=== PATIENT | male | born 1940 | race Caucasian/White ===

== ENCOUNTER 2017-06-02 14:29 | Inpatient (IN) | payer MEDICARE ==
[~2017-06-02 14:29] MED LIST: Iopamidol 370 76% 100 ML VIAL ONE; Iopamidol 370 76% 50 ML VIAL FS ONE
[2017-06-02 14:56] LABS: #Lymphocytes 1.3 thou/uL (1.20-3.40); #Monocytes 1.2 thou/uL (0.11-0.59); #Neutrophils 11.3 thou/uL (1.40-6.50); %Basophils 0.1 % (0.0-1.0); %Eosinophils 0.2 % (0.0-10.0); %Lymphocytes 9.3 % (21.0-51.0); %Monocytes 8.7 % (0.0-10.0); %Neutrophils 81.7 % (42.0-75.0); Hemoglobin 15.7 g/dL (14.0-18.0); Mean Corpuscular HGB CONC 33.1 g/dL (32.0-36.0); Mean Corpuscular Hemoglobin 30.6 pg (27.0-31.0); Mean Corpuscular Volume 92.4 fl (80.0-94.0); Platelet Count 328 thou/uL (130-400); RBC Distribution Width 11.7 % (11.5-14.5); Red Blood Cell (RBC) Count 5.14 mill/uL (4.70-6.10); White Blood Cell (WBC) Count 13.8 thou/uL (4.8-10.8)
[2017-06-02 15:02] LABS: INR-International Normal Ratio 1.1; Prothrombin Time 14.7 SEC (12.0-14.7)
[2017-06-02 15:03] LABS: PTT 110.1 SEC (22.9-36.1)
[2017-06-02 15:08] LABS: ALT (SGPT) 27 U/L (8-55); AST (SGOT) 15 U/L (5-34); Albumin 3.7 g/dL (3.4-4.8); Alkaline Phosphatase 68 U/L (40-150); Anion Gap 12 mmol/L (10-20); BUN (Urea Nitrogen) 17 mg/dL (8.4-25.7); Bilirubin, Total 1.1 mg/dL (0.2-1.2); Calc. Creatinine Clearance 0 mL/min (70-130); Carbon Dioxide 25 mmol/L (23-31); Chloride 99 mmol/L (98-107); Estimated GFR-MDRD Greater than 90; Globulin 2.6 g/dL (2.4-3.5); Glucose 144 mg/dL (83-110); Lipase 125 U/L (8-78); Protein, Total 6.3 g/dL (5.8-8.1); Sodium 133 mmol/L (136-145)
[2017-06-02 15:11] LABS: CKMB 2.9 ng/mL (0-6.6); Troponin I 0.225 ng/mL (< 0.028)
--- NOTE | 2017-06-02 16:15 | HP ---
INDICATION FOR ADMISSION: A 76-year-old gentleman with what appears to be acute inferior myocardial infarction. HISTORY OF PRESENT ILLNESS: This is a very pleasant 76-year-old gentleman, who had been out cutting his grass today. He came inside the house and started noticing some chest pain around noon. He took some H2 stephanie and still continued to have some discomfort. He presented to the emergency room where he was given nitroglycerin, heparin, and aspirin. He has been on prednisone 20 mg a day for a recent cough. His pain then resolved. His EKGs have some slight improvement. He did have some nonspecific ST-segment elevation in the inferior leads as well as also in V4 through V5 with decreased R-wave in V1 through V3 and what appears to be a Q-wave in 3 and aVF. At this time, he is comfortable, but due to his EKG changes and sudden onset of his discomfort, we have opted to proceed with cardiac catheterization. He did have a cardiac catheterization in , but there were no significant abnormalities noted at that time. PAST MEDICAL HISTORY: Significant for no significant surgeries. He has had some history of hypertension. SOCIAL HISTORY: He is a . He has no children. He has no tobacco abuse. He has no alcohol use except for rarely. He is a retired vehicle service agent. FAMILY HISTORY: Noncontributory. ALLERGIES: None. MEDICATIONS: He was taking prednisone 20 mg a day. REVIEW OF SYSTEMS: Twelve-point review of systems unremarkable except what was noted in the history of present illness. PHYSICAL EXAMINATION: GENERAL: Well-developed, well-nourished gentleman. VITAL SIGNS: Blood pressure 147/66, heart rate 71 and regular, respiratory rate is 18. HEENT EXAM: Shows head to be normocephalic, atraumatic. Carotid pulses are present. There were no bruits. CHEST: Clear to auscultation without rales, rhonchi, or wheezing. CARDIOVASCULAR EXAM: Reveals a regular rate and rhythm at this time. There were no significant murmurs, heaves, thrills, bruits, or rubs. ABDOMINAL EXAM: Soft and nontender. Positive bowel sounds. No organomegaly or masses noted. Femoral pulses are present. EXTREMITIES: Showed no clubbing, cyanosis, edema. Pedal pulses are present. NEUROLOGIC: The patient appears to be fully intact. Normal strength and tone. SKIN: Warm and dry at this time. IMAGING: EKG as noted above. LABORATORY DATA: Shows a creatinine of less than 1. Otherwise, we have no recent laboratory data. These are still pending. IMPRESSION: Acute inferior myocardial infarction, ST-segment elevation. The patient will move urgently to the cardiac catheterization lab to rule out evidence of severe underlying coronary artery disease. I have explained the procedure and the risks to include bleeding, infection, possibly a myocardial infarction, cerebrovascular accident, renal insufficiency, allergic contrast reaction, even the possibility of . He understands and agrees to proceed. We will plan for emergent cardiac catheterization. VILMA
[2017-06-02] MEDS ORDERED: Nitroglycerin 0.4 MG TAB (25 Tab Bottle) SL PRN (16:17)
[2017-06-02] MEDS ORDERED: Zolpidem Tartrate 5 MG TAB PO PRN (16:17)
[2017-06-02] MEDS ORDERED: Acetaminophen/Codeine 30-300mg Tablet PO PRN ×2 (16:17)
[2017-06-02] MEDS ORDERED: Morphine 4 MG/ML Carpuject SLOW IVP PRN (16:17)
[2017-06-02] MEDS ORDERED: cloNIDine 0.1 MG TAB PO PRN (16:17)
[2017-06-02] MEDS ORDERED: Milk Of Magnesia 30 ML UDCUP PO PRN (16:17)
[2017-06-02] MEDS ORDERED: Mag-Al 1200 mg/1200 mg/30 ML UDCUP PO PRN (16:17)
[2017-06-02] MEDS ORDERED: traMADol HCl 50 MG TAB PO PRN (16:17)
[2017-06-02] MEDS ORDERED: Heparin 10,000 UNITS/ 10 ML VIAL SLOW IVP SCH (16:30)
[2017-06-02] MEDS ORDERED: Heparin 25,000 units/D5W 500 ML IV SCH (16:30)
[2017-06-02] MEDS ORDERED: Temazepam 15 MG CAP PO PRN (16:32)
[2017-06-02] MEDS ORDERED: Communication Order-Pharmacy FS SCH (16:32)
[2017-06-02] MEDS ORDERED: Heparin 25,000 units/D5W 500 ML ONE (16:34)
[2017-06-02 16:53] LABS: Hemoglobin A1c 5.6 % (4.0-6.0)
--- NOTE | 2017-06-02 17:34 | RAD ---
CHEST ONE VIEW: HISTORY: Pre open heart surgery. COMPARISON: None. FINDINGS: The lungs are clear without pneumothorax or effusion. The cardiac silhouette and mediastinal contour are within normal limits. Mild lung hypoinflation. IMPRESSION: No acute intrathoracic abnormality. POS: [facility]
[2017-06-02 20:14] LABS: CKMB 32.2 ng/mL (0-6.6); Troponin I 3.688 ng/mL (< 0.028)
[2017-06-02] MEDS ORDERED: Atorvastatin Calcium 40 MG TAB PO SCH (21:00)
[2017-06-02] MEDS ORDERED: Atorvastatin Calcium 20 MG TAB PO SCH (21:00)
[2017-06-02] MEDS: Carvedilol 3.125 MG TAB PO SCH (21:28)
[2017-06-02] MEDS: Sodium Chloride 0.9% 1,000 ML IV SCH (21:29)
[2017-06-02 22:28] LABS: CKMB 34.8 ng/mL (0-6.6); Troponin I 6.447 ng/mL (< 0.028)
--- NOTE | 2017-06-02 22:33 | ULT ---
BILATERAL CAROTID DUPLEX ULTRASOUND INCLUDING COLOR AND SPECTRAL DOPPLER IMAGING: HISTORY: A 76-year-old male with a history of AST and chest pain. FINDINGS: There is visual plaque, particularly in the left ICA and distal calcification. PSV RIGHT ICA: 67 cm per second EDV: 17 cm per second ICA/CCA RATIO: 0.8 PSV LEFT ICA: 71 cm per second EDV: 20 cm per second ICA/CCA RATIO: 0.8 Vertebral flow is antegrade. IMPRESSION: Visual plaque in the proximal left internal carotid artery and distal common carotid artery, evidence for carotid artery vascular disease. No hemodynamically significant stenosis. The findings were discussed with Dr. Jesus at 10:12 p.m. CODE CR POS: [facility]
[2017-06-03] MEDS: Sodium Chloride 0.9% 1,000 ML IV SCH ×2 (02:33→16:19)
[2017-06-03 02:53] LABS: #Basophils 0.1 thou/uL (0.0-0.2); #Lymphocytes 1.5 thou/uL (1.20-3.40); #Monocytes 0.9 thou/uL (0.11-0.59); #Neutrophils 8.3 thou/uL (1.40-6.50); %Basophils 0.6 % (0.0-1.0); %Eosinophils 0.4 % (0.0-10.0); %Lymphocytes 14.1 % (21.0-51.0); %Monocytes 8.1 % (0.0-10.0); %Neutrophils 76.8 % (42.0-75.0); Hemoglobin 14.9 g/dL (14.0-18.0); Mean Corpuscular Hemoglobin 32.2 pg (27.0-31.0); Mean Corpuscular Volume 92.1 fl (80.0-94.0); Mean Platelet Volume 7.1 fL (7.4-10.4); Platelet Count 303 thou/uL (130-400); RBC Distribution Width 11.7 % (11.5-14.5); Red Blood Cell (RBC) Count 4.61 mill/uL (4.70-6.10); White Blood Cell (WBC) Count 10.8 thou/uL (4.8-10.8)
[2017-06-03 03:17] LABS: ALT (SGPT) 23 U/L (8-55); AST (SGOT) 36 U/L (5-34); Albumin 3.3 g/dL (3.4-4.8); Alkaline Phosphatase 57 U/L (40-150); Anion Gap 11 mmol/L (10-20); BUN (Urea Nitrogen) 9 mg/dL (8.4-25.7); Calc. Creatinine Clearance 107 mL/min (70-130); Calcium 8.7 mg/dL (7.8-10.44); Carbon Dioxide 26 mmol/L (23-31); Chloride 104 mmol/L (98-107); Estimated GFR-MDRD Greater than 90; Globulin 2.2 g/dL (2.4-3.5); Glucose 122 mg/dL (83-110); Potassium 3.1 mmol/L (3.5-5.1); Protein, Total 5.5 g/dL (5.8-8.1); Sodium 138 mmol/L (136-145)
--- NOTE | 2017-06-03 08:42 | HP ---
PRIMARY CARE PHYSICIAN: Parveen Lockwood MD ADMITTING PHYSICIAN: Samantha Nails MD REASON FOR CONSULTATION: Medical management. HISTORY OF PRESENT ILLNESS: This is a 76-year-old white male with a past medical history of hyperten tiffany and diet controlled diabetes mellitus type 2, who presents with chest pain starting at noon toda y, crushing across the front of his chest and continuous pain. He went in and saw his primary care d manuela and a couple of hours later, sent him to the emergency room. There he was found to have an ST elevation acute myocardial infarction. He was quickly transferred and brought directly to the cath l ab, Dr. Nails did a cardiac catheterization on him and found 5 vessels significant coronary artery dis ease that will require coronary artery bypass grafting. The patient's pain resolved in the ambulance on the way over to [place]. He had not had any pain since. He had no other associated symptoms. PAST MEDICAL HISTORY: 1. Hypertension. 2. Diabetes mellitus type 2, diet controlled. PAST SURGICAL HISTORY: Cardiac catheterization in the . PSYCHIATRIC HISTORY: None. SOCIAL HISTORY: Rare alcohol. No illicit drug use. No history of tobacco use. FAMILY HISTORY: No significant family history of coronary artery disease or heart disease. ALLERGIES: No known drug allergies. CURRENT MEDICATIONS: 1. Diltiazem 420 mg daily. 2. Losartan/hydrochlorothiazide 100/25 mg daily. 3. Metoprolol extended release 25 mg daily. 4. Omeprazole 20 mg daily. REVIEW OF SYSTEMS: Constitutional: No fevers, no chills. Eyes: No double vision or blurred vision . ENT: No congestion, drainage, or sore throat. Cardiovascular: See HPI. No palpitations or raci ng heart. Pulmonary: Patient has had chest congestion and cough for the last 2 weeks, it is improvi ng now. No shortness of breath or wheezing. Gastrointestinal: No abdominal pain or nausea or vomit ing, no diarrhea or constipation. Genitourinary: No dysuria or hematuria. Musculoskeletal: No mus obdulia aches or joint pains. Skin: No rashes or lesions noted. Neurologic: No numbness, tingling, or focal weakness. PHYSICAL EXAMINATION: VITAL SIGNS: Blood pressure 139/65, pulse 67, O2 sat 97% on room air, temperature 97.9. GENERAL: This is a well-developed, well-nourished, white male in no apparent distress. EYES: Pupils equal, round, and react to light. ENT: Oropharynx clear without lesions, erythema, or exudate. NECK: Supple. No lymphadenopathy, no thyroid nodules or enlargement. CARDIOVASCULAR: Heart regular rate and rhythm with a 2/6 systolic ejection murmur heard loudest at t he left sternal border. RESPIRATORY: Clear to auscultation bilaterally. No wheezes, crackles, or rhonchi. ABDOMEN: Soft, nontender to palpation, normoactive bowel sounds. No hepatosplenomegaly or masses. EXTREMITIES: No clubbing, cyanosis, or edema. SKIN: No rashes or other lesions noted. NEUROLOGIC: Deep tendon reflexes 2+ in all extremities. Strength 5/5 in all extremities. No facial droop. LABORATORY AND DIAGNOSTIC DATA: CBC, white blood cell count of 13,000. The remainder is normal. Co agulation profile now with an elevated aPTT after heparin, most recent one was 51. Complete metaboli c panel was notable for sodium of 133, potassium of 3.0, glucose of 144 and lipase of 125. Hemoglobi n A1c of 5.6. Cardiac markers, first one was CK-MB of 2.9, troponin of 0.225, repeat now was 32.2 CK -MB and troponin of 3.688. Chest x-ray: I did review the chest x-ray done in the emergency room [place] with the radiologist's report. He does not have any infiltrates, no cardiomegaly, no acute proces s noted. EKG done in the emergency room did show first degree AV block, some unifocal premature vent ricular complexes and ST elevation in the anterior, inferior, and lateral leads were all affected. ASSESSMENT AND PLAN: 1. Acute ST elevation myocardial infarction. The patient is status post catheterization. He is rec eiving heparin, lisinopril, carvedilol, and has p.r.n. nitroglycerin and currently asymptomatic. Octavia suh is for Cardiovascular Surgery to see him in the morning and for him to perform a coronary artery by pass graft, currently is getting his ultrasound of carotid Dopplers and his echocardiogram has been o rdered. We will monitor closely in the ICU for any arrhythmia from his acute heart damage and give n itroglycerin as needed. 2. Hypertension. The patient is currently on a beta-stephanie and AVERY inhibitor and will give p.r.n. medicines as needed for severe hypertension. 3. Diabetes mellitus type 2, diet controlled. We will put him on a sliding scale as needed and ____ _ we will put him on a diabetic diet. 4. Gastrointestinal prophylaxis. We will put the patient on a proton pump inhibitor IV. 5. Deep venous thrombosis prophylaxis. Patient is already on heparin. CODE STATUS: I did discuss with the patient, he is a FULL CODE. Should he be incapacitated. He sta mau that his [id number] would be his medical decision maker, Ms. Toma Brown.
[2017-06-03] MEDS: Pantoprazole 40 MG VIAL IVP SCH (08:57)
[2017-06-03] MEDS: Lisinopril 2.5 MG TAB PO SCH (08:58)
[2017-06-03] MEDS: Carvedilol 3.125 MG TAB PO SCH (08:59)
[2017-06-03] MEDS ORDERED: Heparin 10,000 UNITS/1 ML VIAL 30,000 UNITS in Sodium Chloride 0.9% 1,000 ML FS SCH (09:00)
[2017-06-03] MEDS ORDERED: Prevnar 13-Val Conj/PF 0.5 ML SYRINGE IM ONE (09:00)
[2017-06-03] MEDS ORDERED: diphenhydrAMINE 50 MG/ML VIAL IVP SCH (09:15)
--- NOTE | 2017-06-03 10:11 | CON ---
DATE OF CONSULTATION: 06/02/2017 REQUESTING PHYSICIAN: Samantha Nails M.D. CHIEF COMPLAINT: Chest pain. HISTORY OF PRESENT ILLNESS: The patient is a 76-year-old man with hypertension and diet controlled d oebd, while mowing the yard today began having substernal chest pain that persisted, he decided to come to the hospital, but the pain had resolved by the time he arrived here. His initial EKG showed some subtle ST elevation inferolaterally and he was taken emergently to the [facility] where he was fo und to have severe diffuse disease in the left dominant system. PAST MEDICAL HISTORY: Significant for hypertension and "prediabetes." He describes having formerly been on metformin, which gave him diarrhea. His hemoglobin A1c at that time he says was 6.9. He mod ified his diet, lost over 20 pounds and his hemoglobin A1c by report is now on the 5s, off medication s. CURRENT MEDICATIONS: Diltiazem ER 420 mg a day, losartan 100/hydrochlorothiazide 25 one a day, Topro l-XL 25 a day, Prilosec 20 mg a day, Flomax 1 in the evening, Proscar 5 mg in the evening, potassium chloride 10 mEq in the evening, simvastatin 20 mg in the evening, Coenzyme Q10 100 mg in the morning, Krill oil 500 mg in the evening, Zyrtec 10 mg evening, and cinnamon 500 mg b.i.d. ALLERGIES: He denies any medical allergies. SOCIAL HISTORY: He has never smoked. FAMILY HISTORY: He denies any known history of premature coronary or cerebrovascular disease in the family. REVIEW OF SYSTEMS: The patient has never had any previous such episodes of chest pain. No shortness of breath. No eyes, speech, facial or extremity symptoms to suggest TIAs. He has the intentional w eight loss as described above. PHYSICAL EXAMINATION: GENERAL: He is a healthy-appearing man, who appears younger than his stated age, who is in no distre ss. VITAL SIGNS: Stated height is 6 feet tall and stated weight 183 pounds. Sinus rhythm at 75, blood p ressure 161/75. HEENT: He perhaps has some faint xanthelasma. NECK: He has no JVD. He has bilateral carotid bruits. LUNGS: His chest is clear to auscultation. CARDIOVASCULAR: He has a regular rate and rhythm with a 2/6 systolic ejection murmur heard throughou t the upper sternal border. ABDOMEN: Soft and nontender without organomegaly, masses or bruits. EXTREMITIES: He has easily palpable radial, femoral, popliteal, dorsalis pedis, and posterior tibial pulses. He has no femoral bruits. He has spider type varicosities at ankles, but no bulging varico sities. He has no clubbing, cyanosis or edema. NEUROLOGIC: Grossly nonfocal. LABORATORY DATA: Shows a white count of 13.8, hemoglobin of 15.7, hematocrit 47.5, platelets 328,000 . PT is 14.7, INR 1.1, PTT 110. Sodium is 133, potassium 3.0, chloride 99, CO2 25, glucose 144, BUN 17, creatinine 0.81, bilirubin 1.1, alkaline phosphatase 68, AST 15, ALT 27, protein 6.3, albumin 3. 7. CK was 2.9, troponin 0.225. His cardiac catheterization shows a left dominant system. He has a high grade proximal lesion and a small nondominant right. He has some calcified plaque in the left m ain and proximal branch vessel. He has some mild distal narrowing of the left main and then ostial L AD lesion. He has a high first diagonal that bifurcates with essentially an occluded large anterior branch of that diagonal then gives rise to 3 small branches. Dye hangs up in the large primary branc h of that anterior branch. His LAD is occluded distally and one gets hint of a cast wrapping around the apex. The circumflex proper gives rise to a tiny ramus type OM1 and then modest size, but long O M2 just beyond that has a long proximal lesion in it and OM2 appears to fill in left to left faintly and then there is a large OM3 that has some disease in it. There are serial lesions in the distal ci rcumflex as it leads and terminal arborization into the posterior descending distribution. LVEF is a round 60% or even 70% with an area of inferior akinesis. LV pressure is 150/2 with an EDP of 18. Ao rtic pressure on pullback was 134/46 with a mean of 85. ASSESSMENT AND PLAN: Severe three-vessel coronary artery disease. The patient is currently stable a nd pain free, but has certainly very compelling anatomy, not only for long-term, but for short term, speaking towards surgical revascularization. The patient is still in the process of making up his mi nd. I am going to have things arranged to be able to proceed with his bypass surgery tomorrow assumi ng that he decided to proceed. In the meantime, I am going to check carotid ultrasounds to investiga te his carotid bruits.
--- NOTE | 2017-06-03 10:25 | PDOC.PN ---
- Subjective Encounter Start Date: 06/03/17 Encounter Start Time: 15:00 Subjective: Patient down for CABG. - Objective Resuscitation Status: Resuscitation Status FULL:Full Resuscitation MAR Reviewed: Yes Vital Signs & Weight: Vital Signs (12 hours) Temp Pulse 06/03/17 08:58 74 06/03/17 08:00 97.8 F 06/03/17 04:00 97.8 F 06/03/17 00:00 97.6 F Weight Admit Weight 186 lb 1.122 oz Weight 186 lb 1.122 oz Most Recent Monitor Data Heart Rate from ECG 67 NIBP 149/59 NIBP BP-Mean 81 Respiration from ECG 17 SpO2 96 I&O: 06/02/17 06/03/17 06/04/17 06:59 06:59 06:59 Intake Total 1250 Output Total 2842 220 Balance -1592 -220 Result Diagrams: 06/03/17 02:32 06/03/17 02:32 Dx/Plan (1) STEMI (ST elevation myocardial infarction) Status: Acute (2) CAD (coronary artery disease) Code(s): I25.10 - ATHSCL HEART DISEASE OF [place] CORONARY ARTERY W/O ANG PCTRS Status: Acute Qualifiers: Coronary Disease-Associated Artery/Lesion type: [place] artery Comment: multivessel disease, plan for CABG today (3) Hypertension Code(s): I10 - ESSENTIAL (PRIMARY) HYPERTENSION Status: Chronic (4) Diabetes mellitus type 2, diet-controlled Code(s): E11.9 - TYPE 2 DIABETES MELLITUS WITHOUT COMPLICATIONS Status: Chronic - Plan cont current plan of care, DVT proph w/heparin * . - Discharge Day Encounter end time: 15:10
[2017-06-03] MEDS ORDERED: Norepinephrine 8 MG/0.9% NS 250 ML ONE (10:29)
[2017-06-03] MEDS ORDERED: Nitroglycerin 50 MG/250 ML BOT 250 ML ONE (10:29)
[2017-06-03] MEDS ORDERED: Midazolam HCl 5 mg/5 ml Vial ONE (10:41)
[2017-06-03] MEDS ORDERED: Fentanyl 250 MCG/5 ML VIAL ONE (10:41)
[2017-06-03] MEDS ORDERED: Vecuronium 10 MG VIAL ONE ×2 (10:42→11:55)
[2017-06-03] MEDS ORDERED: Phenylephrine HCL 10 MG/ML VIAL ONE (10:42)
[2017-06-03] MEDS ORDERED: Midazolam HCl 2 mg/2 ml Vial ONE (11:06)
[2017-06-03] MEDS ORDERED: Albumin 5% 500 ML ONE (11:36)
[2017-06-03] MEDS ORDERED: DOPamine 400 MG/10 ML VIAL ONE (11:55)
[2017-06-03] MEDS ORDERED: Sodium Bicarb 50 MEQ/50 ML VIAL ONE (11:55)
[2017-06-03] MEDS ORDERED: Heparin 30,000 units/30 ml VIAL ONE (11:55)
[2017-06-03] MEDS ORDERED: Aminocaproic Acid 5 GM/20 ML VIAL ONE (11:55)
[2017-06-03] MEDS ORDERED: Lidocaine 1% PF 5 ML VIAL ONE (11:55)
[2017-06-03] MEDS ORDERED: Papaverine 60 MG/2 ML VIAL ONE (11:55)
[2017-06-03] MEDS ORDERED: Magnesium 5 GM/10 ML VIAL ONE (11:55)
[2017-06-03] MEDS ORDERED: Protamine Sulfate 250 MG/25 ML VIAL ONE (11:55)
[2017-06-03] MEDS ORDERED: Lidocaine 2% PF 100 mg/5 ml Syringe ONE (11:55)
[2017-06-03] MEDS ORDERED: PHENYLEPHRINE-NS 100 MCG/ML 10 ML SYRINGE ONE (11:55)
[2017-06-03] MEDS ORDERED: Potassium Chloride 60 MEQ/30 ML VIAL ONE (11:55)
[2017-06-03] MEDS ORDERED: Calcium Chloride 1 GM/10 ML Abboject SYRINGE ONE (11:55)
[2017-06-03] MEDS ORDERED: Cardioplegic Soln 1,000 ML BAG ONE (11:55)
[2017-06-03] MEDS ORDERED: Heparin 5,000 UNITS/ML VIAL ONE (11:55)
[2017-06-03] MEDS ORDERED: PROPOFOL 200 MG/20 ML VIAL ONE (11:55)
[2017-06-03] MEDS ORDERED: CEFAZOLIN 1 GM VIAL ONE (12:47)
[2017-06-03] MEDS ORDERED: Ondansetron HCl/PF 4 MG/2 ML Vial IVP PRN (15:52)
[2017-06-03] MEDS ORDERED: Morphine 4 MG/ML VIAL SLOW IVP PRN (15:52)
[2017-06-03] MEDS ORDERED: Promethazine HCl 25 MG/ML VIAL IM PRN (15:52)
[2017-06-03] MEDS ORDERED: Bisacodyl 5 MG TAB PO PRN (15:52)
[2017-06-03] MEDS ORDERED: Acetaminophen 325 MG TAB PO PRN (15:52)
[2017-06-03] MEDS ORDERED: Post-Op Insulin Drip Protocol IVPB ONE (15:52)
[2017-06-03] MEDS ORDERED: Nitroglycerin 50 MG/250 ML BOT 250 ML IVPB PRN (15:52)
[2017-06-03] MEDS ORDERED: Fentanyl 100 MCG/2 ML VIAL SLOW IVP PRN ×2 (15:52)
[2017-06-03] MEDS ORDERED: hydrALAZINE 20 MG/ML VIAL SLOW IVP PRN (15:52)
[2017-06-03] MEDS ORDERED: Bisacodyl 10 MG SUPP PR PRN (15:52)
[2017-06-03] MEDS ORDERED: niCARdipine HCl 25 MG in Sodium Chloride 0.9% 250 ML 240 ML IVPB PRN (15:52)
[2017-06-03] MEDS ORDERED: Mag-Al 1200 mg/1200 mg/30 ML UDCUP PO PRN (15:52)
[2017-06-03] MEDS ORDERED: Potassium Chloride 20 MEQ/100 ML PREMIX BAG IVPB PRN (15:52)
[2017-06-03] MEDS ORDERED: Hetastarch 6% 500 ML 500 ML IVPB PRN (15:52)
[2017-06-03] MEDS ORDERED: Norepinephrine 8 MG/0.9% NS 250 ML IVPB PRN (15:52)
[2017-06-03] MEDS ORDERED: Guaifenesin DM 100-10/5 ML UDCUP PO PRN (15:52)
[2017-06-03] MEDS ORDERED: Dextrose 5% in Water 1,000 ML IV PRN (16:00)
[2017-06-03] MEDS ORDERED: Dextrose 50% Abboject 50 ML SYRINGE SLOW IVP PRN (16:00)
[2017-06-03 16:23] LABS: Actual Bicarbonate (HCO3a) 22.6 mEq/L (22-26); Hemoglobin (Hb) 12.2 g/dL (14.0-18.0); O2 Tension (PaO2) 109.6 mmHg (80.0-100.0); pH, Arterial 7.39 (7.35-7.45)
[2017-06-03 16:24] LABS: Calcium, Ionized 1.1 mmol/L (1.12-1.30); Puncture Site LINE
[2017-06-03 16:37] LABS: INR-International Normal Ratio 1.4; PTT 33.4 SEC (22.9-36.1); Prothrombin Time 17.3 SEC (12.0-14.7)
--- NOTE | 2017-06-03 16:44 | RAD ---
CHEST ONE VIEW: History: Post open heart surgery. Comparison: 06-02-17 FINDINGS: Patient is intubated with enteric tube tip in good position at the level of the clavicles. Central ve nous catheter tip is present in the right atrium. Mediastinal drain and left thoracostomy drains are present. No apical pneumothorax is appreciated. Midline sternotomy wires are present. IMPRESSION: Expected post-operative findings. No complication. POS: C
[2017-06-03 16:49] LABS: Band 5 % (5-11); Hemoglobin 12.3 g/dL (14.0-18.0); Lymphocytes 6 % (21-51); MDiff Complete? YES; Mean Corpuscular HGB CONC 34.1 g/dL (32.0-36.0); Mean Corpuscular Hemoglobin 31.7 pg (27.0-31.0); Mean Corpuscular Volume 93.2 fl (80.0-94.0); Mean Platelet Volume 6.8 fL (7.4-10.4); Monocytes 3 % (0-10); Neutrophil 86 % (42-75); PLT Morphology Comment Appears Adequate; Platelet Count 217 thou/uL (130-400); RBC Distribution Width 11.8 % (11.5-14.5); Red Blood Cell (RBC) Count 3.88 mill/uL (4.70-6.10); White Blood Cell (WBC) Count 28.9 thou/uL (4.8-10.8)
[2017-06-03 16:50] LABS: Anion Gap 10 mmol/L (10-20); BUN (Urea Nitrogen) 9 mg/dL (8.4-25.7); Calc. Creatinine Clearance 121 mL/min (70-130); Calcium 7.1 mg/dL (7.8-10.44); Carbon Dioxide 21 mmol/L (23-31); Chloride 111 mmol/L (98-107); Estimated GFR-MDRD Greater than 90; Glucose 141 mg/dL (83-110); Potassium 3.3 mmol/L (3.5-5.1); Sodium 139 mmol/L (136-145)
[2017-06-03] MEDS: Insulin Regular 300 UNITS/3 ML VIAL SC PRN ×2 (16:53→23:03)
[2017-06-03] MEDS: Ketorolac Tromethamine 30 MG/ML VIAL IVP SCH (17:38)
[2017-06-03 18:23] LABS: pH, Arterial 7.32 (7.35-7.45)
[2017-06-03 18:24] LABS: Actual Bicarbonate (HCO3a) 21.4 mEq/L (22-26); Base Excess (BEa) -4.4 mEq/L (0 (+/-) 2.5); CO2 Tension 42.4 mmHg (35.0-45.0); Calcium, Ionized 1.1 mmol/L (1.12-1.30); Hematocrit-ABG 34.8 % (42.0-52.0); O2 Tension (PaO2) 80.2 mmHg (80.0-100.0)
[2017-06-03 18:25] LABS: Puncture Site LINE
--- NOTE | 2017-06-03 22:00 | OP ---
DATE OF PROCEDURE: 06/03/2017 PROCEDURES PERFORMED: Right subclavian central line placement, coronary artery bypass grafting x5 wi th left internal mammary artery to the mid LAD, sequential reverse greater saphenous vein graft from the aorta to the second obtuse marginal to the diagonal, sequential reverse greater saphenous vein gr aft from the aorta to the OM4 to the OM3. PREOPERATIVE DIAGNOSES: Coronary artery disease, status post ST-elevation myocardial infarction. POSTOPERATIVE DIAGNOSES: Coronary artery disease, status post ST-elevation myocardial infarction. SURGEON: Dr. Jesus. TOWER OPERATOR: Seth. ANESTHESIA: General endotracheal anesthesia. INDICATIONS: The patient is a 76-year-old diet-controlled diabetic with hypertension, who began havi ng chest pain while doing yard work. By the time, he presented to the emergency room, the pain had r esolved, but he still had some ST elevation inferolaterally on his EKG, and he was taken emergently t o the cardiac catheterization lab where he was found to have multivessel disease in the left dominant system including an ostial LAD lesion. He has had an uneventful post-infarction course and is now t aken to the operating room for surgical revascularization. FINDINGS: Pump time 95 minutes. Cross-clamp time 61 minutes. Good quality of mammary and saphenous vein. There was fairly large hard plaque to the left anteromedial aspect of the distal ascending ao rta prompting right common femoral artery cannulation and construction of proximal vein graft anastom oses under cross-clamped. The LAD distally was a rock hard vessel in its midportion, it was thick-wa lled but soft, it was about 2 mm in diameter. The diagonal was about 2 mm in diameter. The second o btuse marginal was 2 to 2.5 mm in intramyocardial. The OM3 was rock hard proximally into its midport ion, but distally was soft and slightly thick walled, it was about 1.5 to 2 mm in diameter. The OM4 was a fairly good quality 1.5 to 2 mm vessel. The terminal circumflex branches were all small with t he largest of those being only about 1 mm. The pericardium was closed. NARRATIVE REPORT: After informed consent was obtained, the patient was taken to the operating room a nd placed in supine position on the operating table. After induction of general anesthesia, the david ent's right upper chest was prepped and draped in sterile fashion. By the Seldinger technique, tripl e-lumen central line kit was used to place a central line in the right subclavian position. All thre e ports aspirated and flushed. The line was secured. The patient sores of groins and lower extremit ies were prepped and draped in sterile fashion. Saphenous vein was harvested endoscopically from the left lower extremity from the groin to about one and half handbreadths above the foot. It was a goo d quality vessel fairly uniform caliber. A median sternotomy was performed. The left pleural space was entered and the left JESSICA was mobilized as a pedicle from the level of the xiphoid to the level of the subclavian vein. Side branches were controlled with Hemoclips. The patient was heparinized and the mammary was ligated and divided distally. There was good flow through the mammary, which was in stilled intraluminally with papaverine solution. The mammary bed was inspected for hemostasis. JESSICA retractors were placed with an Ankeney. The pericardium was opened and marsupialized. They was palp ated and hard plaque was found distally in the ascending aorta. It was relatively localized plaque, even though it was hard. While there was room immediately adjacent to it for aortic cannulation that was bit uneasy about manipulating the aorta in that manner, so close to the plaque. There did appea r to be room for safe cross-clamping, proximal to the clamp to the plaque and still in room for at le ast 2 aortotomies. An oblique incision was made about a fingerbreadth below the right groin crease c entered over the palpable femoral pulse. The femoral artery was identified and isolated this loop wi th an umbilical tape and a 5-0 Prolene pursestring was placed in this very large vessel. A pursestri ng was placed in the right atrial appendage. An 18-Divehi wire reinforced thin-walled femoral arteri al cannula was placed through the Prolene pursestring in the femoral artery, it advanced easily. The obturator was removed and the line was clamped and secured, it was connected to the bypass circuit. Venous cannula was inserted through the right atrial appendage, the plane between the aorta and the pulmonary artery was developed and the aorta was again palpated. No additional plaque was identified . Cardiopulmonary bypass was instituted and the patient's body temperature was allowed to cool. The heart was examined and the vessel to be bypassed were identified. A longitudinal slit was made in t he pericardium anterior to the left phrenic nerves. There is the mammary pedicle could be passed. A n aortic cross-clamp was applied and cardioplegia was administered through an aortic root needle. Wh en arrest been achieved, attention was turned to the distal arborization of the dominant circumflex a nd the largest of the vessels was explored near where it emerged from the AV groove as a very thin-wa lled small vessel and has elected not to attempt grafting of it. Attention was then turned to the po sterolateral OM4, it was exposed and opened and examining the OM3 with plan to do a sequential grafti ng technique from the OM forward to it, it was readily apparent that at that same level, the OM3 was not graftable. It was a soft vessel out distally and rather than constructing the anastomosis perpen dicular to the axis. The coronary was elected to graft the OM3 end-to-side and the OM4 [id number] with the anastomoses oriented nearly parallel to the axis of the coronary. The OM3 was opened distal ly and was grafted end-to-side. A longitudinal venotomy was made in that graft and a pukw-uf-swge an astomosis constructed to the OM for the lay of the anterior branch of the diagonal was nearly paralle l to the LAD. It allowed for sequential grafting technique to graft, the diagonal in the side and th en a [id number] anastomosis was constructed from that graft to the intramyocardial OM2. The LAD wa s then opened in its mid portion, where it began to dive intramyocardially. Distally, it was a rock hard vessel, not suitable for grafting. The left JESSICA was anastomosed there end-to-side with running 7-0 Prolene, and the mammary pedicle tacked to the epicardium. Additional cardioplegia was administe red at that point and then two aortotomies were made in the ascending aorta with a scalpel and punch. The sequential OM2 diagonal graft was anastomosed end-to-side to the more proximal aortotomy and th e sequential OM4, OM3 graft was anastomosed in the more distal aortotomy with that distal anastomosis frustrated, patient was placed in Trendelenburg and cardioplegia was administered through the aortic root needle to help flush the aortic root of air. The suture line was secured and the root needle w as placed on suction with the patient in Trendelenburg. The aortic cross-clamp was removed and the v ein grafts were deaired. The bulldogs were removed from them and the proximal anastomoses were marke d with small Hemoclips. The anastomoses were examined for adequacy of hemostasis. The bulldog was r emoved from the mammary pedicle. There was no bleeding along the pedicle or any apparent surgical bl eeding at the anastomosis. A left pleural drain was brought out through separate incision and secure d with suture as well as a posterior pericardial drain. Right atrial and right ventricular temporary epicardial pacing wires were placed. The root needle was removed in its insertion site secured with Prolene pursestring with the use of AV sequential pacing. The patient was then from cardi opulmonary bypass. The venous cannula was removed and its pursestring secured with Rumel. The arter ial cannula was removed and its pursestring secured. Patient tolerated the test dose of protamine. The atrial cannulation site was secured and the remaining protamine was given. When hemostasis was a dequate, an anterior mediastinal drain was placed and the pericardium was easily closed over with run fany Vicryl. The sternum was reapproximated with #7 stainless steel wires. The fascia was closed ov er the wires. The heavy Vicryl in the subcutaneous tissue was irrigated and reapproximated and the s kin closed with Vicryl subcuticular stitch. The groin wound was again inspected, it was closed in la yers with subcutaneous and subcuticular Vicryl. The wounds were dressed and the patient taken to the Intensive Care Unit in stable condition.
[2017-06-03] MEDS: Famotidine 40 MG/4 ML VIAL SLOW IVP SCH (22:39)
[2017-06-03] MEDS: Atorvastatin Calcium 10 MG TAB PO SCH (22:41)
[2017-06-03 22:58] LABS: Hemoglobin 11.2 g/dL (14.0-18.0)
[2017-06-03 23:14] LABS: Potassium 3.9 mmol/L (3.5-5.1)
[2017-06-04] MEDS: Ketorolac Tromethamine 30 MG/ML VIAL IVP SCH ×3 (00:10→11:25)
--- NOTE | 2017-06-04 03:03 | CON ---
DATE OF CONSULTATION: 06/03/2017 HISTORY OF PRESENT ILLNESS: A 76-year-old male. He underwent coronary bypass grafting today. I was examining him after he returned from surgery. He is unable to give a history. PAST MEDICAL HISTORY: Remarkable for diabetes with an emergent catheterization after an ST elevation myocardial infarction. This admission showing significant coronary artery disease, history of hypertension, history of cardiac catheterization over 20 years ago. SOCIAL HISTORY: Non-smoker, nondrinker. Rarely, does not use drugs. ALLERGIES: He has no drug allergies. FAMILY HISTORY: Negative for vascular disease or lung disease in early age. MEDICATIONS: Prior to admission he was on Cardizem, losartan, hydrochlorothiazide, metoprolol, omeprazole. REVIEW OF SYSTEMS: Not obtainable. PHYSICAL EXAMINATION: GENERAL: Pt underwent CABG today VITAL SIGNS: An arterial line in place. Blood pressure 107/62. He was paced, respiratory rate was per mechanical ventilation. HEENT: Pupils are equal. Sclerae is anicteric. NECK: Supple. Sternum is bandaged. LUNGS: Remarkable for equal breath sounds. HEART: Regular rhythm. ABDOMEN: Soft and nontender. EXTREMITIES: No clubbing, cyanosis, or edema. He is paced postoperatively. Chest x-ray showed proper placement of tubes and lines, no infiltrates. IMPRESSION: Status post emergent coronary artery bypass grafting, clinically stable, will be weaned per protocol. Dr. Jesus feels this is appropriate. I will be happy to follow with the patient physicians caring for him. This is a 70 minute consult greater than 50% of the time spent on the unit coordinating care. VILMA
[2017-06-04] MEDS: Sodium Chloride 0.9% 1,000 ML IV SCH (04:04)
[2017-06-04 04:58] LABS: Anion Gap 7 mmol/L (10-20); BUN (Urea Nitrogen) 16 mg/dL (8.4-25.7); Calc. Creatinine Clearance 96 mL/min (70-130); Calcium 7.8 mg/dL (7.8-10.44); Carbon Dioxide 28 mmol/L (23-31); Chloride 110 mmol/L (98-107); Estimated GFR-MDRD Greater than 90; Glucose 116 mg/dL (83-110); Sodium 141 mmol/L (136-145)
[2017-06-04 05:00] LABS: #Monocytes 1.3 thou/uL (0.11-0.59); #Neutrophils 13.6 thou/uL (1.40-6.50); %Lymphocytes 6.1 % (21.0-51.0); %Monocytes 8.3 % (0.0-10.0); %Neutrophils 85.6 % (42.0-75.0); Hemoglobin 10.4 g/dL (14.0-18.0); Mean Corpuscular HGB CONC 32.8 g/dL (32.0-36.0); Mean Corpuscular Hemoglobin 31.5 pg (27.0-31.0); Mean Platelet Volume 7.2 fL (7.4-10.4); Platelet Count 254 thou/uL (130-400); RBC Distribution Width 11.8 % (11.5-14.5); Red Blood Cell (RBC) Count 3.31 mill/uL (4.70-6.10); White Blood Cell (WBC) Count 15.9 thou/uL (4.8-10.8)
[2017-06-04 06:23] VITALS: BMI 26.2
--- NOTE | 2017-06-04 08:23 | RAD ---
CHEST ONE VIEW: History: Chest pain. Dyspnea. Comparison: 06-03-17 FINDINGS: Cardiac silhouette is magnified by projection and partially obscured by bibasilar atelectasis that reyes s increased slightly since the previous study. Mediastinum is midline with post-operative changes and a right internal jugular central venous catheter. Left thoracostomy tube remains in place without re sidual pneumothorax. Endotracheal catheter is no longer visible. night monitor leads overlie the ch est. IMPRESSION: 1. Interval extubation. Slight increase in bibasilar atelectasis. 2. Other post-operative findings are stable. POS: [facility]
[2017-06-04] MEDS: Pantoprazole 40 MG VIAL IVP SCH (09:26)
[2017-06-04] MEDS: Aspirin 325 MG TAB PO SCH (09:26)
[2017-06-04] MEDS: Famotidine 40 MG/4 ML VIAL SLOW IVP SCH ×2 (09:26→20:55)
[2017-06-04] MEDS: Lisinopril 2.5 MG TAB PO SCH (09:26)
[2017-06-04] MEDS: HYDROcodone/Acetaminophen 5/325 mg Tablet PO PRN ×4 (10:44→21:57)
[2017-06-04] MEDS ORDERED: diphenhydrAMINE 25 MG CAP PO PRN (13:36)
[2017-06-04] MEDS: diphenhydrAMINE 25 MG CAP PO PRN (13:40)
--- NOTE | 2017-06-04 14:14 | PDOC.PN ---
- Subjective Encounter Start Date: 06/04/17 Encounter Start Time: 12:00 Patient is seeen today, he is Weak and tired not eating well, Loss of Appetite, Discussed about Ensure. - Objective Resuscitation Status: Resuscitation Status FULL:Full Resuscitation MAR Reviewed: Yes Vital Signs & Weight: Vital Signs (12 hours) Temp Pulse Resp Pulse Ox 06/04/17 12:00 97.5 F L 06/04/17 09:26 86 06/04/17 07:40 97.1 F L 86 15 99 06/04/17 07:00 97.1 F L 06/04/17 05:00 97.8 F Weight Admit Weight 186 lb 1.122 oz Weight 193 lb 9.054 oz Most Recent Monitor Data Heart Rate from ECG 96 NIBP 109/55 NIBP BP-Mean 65 Respiration from ECG 14 SpO2 96 I&O: 06/03/17 06/04/17 06/05/17 06:59 06:59 06:59 Intake Total 1250 1533 270 Output Total 2842 1495 340 Balance -1592 38 -70 Result Diagrams: 06/04/17 04:40 06/04/17 04:40 Additional Labs: Accuchecks 06/04/17 06/04/17 06/04/17 12:00 09:51 04:35 POC Glucose 99 147 H 114 H 06/04/17 06/03/17 06/03/17 00:38 20:48 16:15 POC Glucose 129 H 145 H 136 H 06/03/17 06/03/17 15:01 14:21 POC Glucose 148 H 147 H Radiology Reviewed by me: Yes Phys Exam - Physical Examination HEENT: PERRLA, moist MMs Neck: no nodes, no JVD Respiratory: wheezing present Cardiovascular: RRR, no significant murmur Gastrointestinal: soft, non-tender Musculoskeletal: no edema, pulses present Neurological: non-focal, normal sensation Lymphatic: no nodes Psychiatric: normal affect, A&O x 3 Dx/Plan (1) CAD (coronary artery disease) Code(s): I25.10 - ATHSCL HEART DISEASE OF [place] CORONARY ARTERY W/O ANG PCTRS Status: Acute Qualifiers: Coronary Disease-Associated Artery/Lesion type: [place] artery Comment: multivessel disease, s/pCABG With Chest tubes with underwater seal. Mansoor, Cardiology following. (2) STEMI (ST elevation myocardial infarction) Status: Acute Comment: Continue on Aspirin, BB, Statin, (3) Diabetes mellitus type 2, diet-controlled Code(s): E11.9 - TYPE 2 DIABETES MELLITUS WITHOUT COMPLICATIONS Status: Chronic Comment: Will encourage to take Ensure, has Doiet controlled DM type. (4) Hypertension Code(s): I10 - ESSENTIAL (PRIMARY) HYPERTENSION Status: Chronic Comment: Continue on Home MEds, BP at Goal. - Plan cont current plan of care, plan discussed w/ family, PT/OT, social service assistant, respiratory therapy, incentive spirometry, DVT proph w/lovenox * . - Discharge Day Encounter end time: 12:30 Review of Systems - Review of Systems Constitutional: negative: fever, chills, sweats, weakness, malaise, other Eyes: negative: Pain, Vision Change, Conjunctivae Inflammation, Eyelid Inflammation, Redness, Other ENT: negative: Ear Pain, Ear Discharge, Nose Pain, Nose Discharge, Nose Congestion, Mouth Pain, Mouth Swelling, Throat Pain, Throat Swelling, Other Respiratory: Cough, Shortness of Breath Cardiovascular: chest pain Gastrointestinal: negative: Nausea, Vomiting, Abdominal Pain, Diarrhea, Constipation, Melena, Hematochezia, Other Genitourinary: negative: Dysuria, Frequency, Incontinence, Hematuria, Retention , Other Musculoskeletal: negative: Neck Pain, Shoulder Pain, Arm Pain, Back Pain, Hand Pain, Leg Pain, Foot Pain, Other - Medications/Allergies Allergies/Adverse Reactions: Allergies Allergy/AdvReac Type Severity Reaction Status Date / Time No Known Drug Allergies Allergy Verified 06/02/17 20:03 Medications: Current Medications Acetaminophen (Tylenol) 650 mg PO Q6H PRN PRN Reason: Headache/Fever Or Mild Pain Hydrocodone Bitart/Acetaminophen ([place] 5/325) 1 tab PO Q4H PRN PRN Reason: Moderate Pain (4-6) Last Admin: 06/04/17 13:44 Dose: 1 tab Hydrocodone Bitart/Acetaminophen ([place] 5/325) 2 tab PO Q4H PRN PRN Reason: Severe Pain (7-10) Al Hydroxide/Mg Hydroxide (Maalox) 30 ml PO Q4H PRN PRN Reason: Indigestion Albuterol/Ipratropium (Duoneb) 3 ml NEB [id number] PRN PRN Reason: SHORTNESS OF BREATH Aspirin (Aspirin) 325 mg PO DAILY [facility] Last Admin: 06/04/17 09:26 Dose: 325 mg Atorvastatin Calcium (Lipitor) 10 mg PO HS [facility] Last Admin: 06/03/17 22:41 Dose: 10 mg Bisacodyl (Dulcolax) 10 mg PO Q12H PRN PRN Reason: Constipation Bisacodyl (Dulcolax) 10 mg [place] Q12H PRN PRN Reason: Constipation Dextrose/Water (Dextrose 50%) 25 gm SLOW IVP PRN PRN PRN Reason: PER HYPOGLYCEMIC PROTOCOL Diphenhydramine HCl (Benadryl) 25 mg PO Q12H PRN PRN Reason: ALLERGIES Last Admin: 06/04/17 13:41 Dose: 25 mg Famotidine (Pepcid) 20 mg SLOW IVP Q12HR [facility] Last Admin: 06/04/17 09:26 Dose: Not Given Glucagon (Glucagon) 1 mg SC PRN PRN PRN Reason: PER HYPOGLYCEMIC PROTOCOL Guaifenesin/Dextromethorphan (Robitussin Dm) 15 ml PO Q4H PRN PRN Reason: Cough Hydralazine HCl (Apresoline) 10 mg SLOW IVP Q6H PRN PRN Reason: To Maintain SBP< 140mmHG Dextrose/Water (D5w) 1,000 mls @ 0 mls/hr IV INF PRN; As Directed PRN Reason: PRN HYPOGLYCEMIC PROTOCOL Insulin Human Regular (Humulin R) 0 units SC Q4H PRN; Protocol PRN Reason: POST OP SLIDING SCALE Last Admin: 06/03/17 23:03 Dose: 3 unit Lisinopril (Zestril) 2.5 mg PO DAILY [facility] Last Admin: 06/04/17 09:26 Dose: Not Given Ondansetron HCl (Zofran) 4 mg IVP Q6H PRN PRN Reason: Nausea/Vomiting Sodium Chloride (Flush - Normal Saline) 10 ml IVF Q12HR [facility] Last Admin: 06/04/17 09:28 Dose: 10 ml Sodium Chloride (Flush - Normal Saline) 10 ml IVF PRN PRN PRN Reason: Saline Flush
--- NOTE | 2017-06-04 16:30 | PRG ---
DATE OF SERVICE: 06/04/2017 SUBJECTIVE: Mrs. Ann is doing well today. He is extubated per protocol overnight. He still has c hest tubes in. OBJECTIVE: VITAL SIGNS: His heart rates in the 90s, blood pressure 109/55, respiratory rates 14, oximetry is 96 . He is not paced. LUNGS: His lungs are clear. HEART: Regular rhythm. S1 and S2 are normal. ABDOMEN: Soft and nontender. EXTREMITIES: Without asymmetry. IMAGING: Chest radiograph is hazy at his bases as expected after extubation. I have reviewed this. LABORATORY DATA: White count is 15.9, hemoglobin 10.4, platelets 254,000. Sodium 141, potassium 4, chloride 110, bicarbonate 20, BUN 16, creatinine 0.7. Blood gas last night 7.32, CO2 42, pO2 80. IMPRESSION: Status post coronary bypass grafting, clinically stable. PLAN: Continue routine post-cardiac bypass care. There are no acute pulmonary issues at this time.
[2017-06-04] MEDS: Atorvastatin Calcium 10 MG TAB PO SCH (20:57)
[2017-06-05] MEDS: HYDROcodone/Acetaminophen 5/325 mg Tablet PO PRN ×3 (05:12→18:53)
[2017-06-05 05:22] LABS: #Monocytes 1.3 thou/uL (0.11-0.59); #Neutrophils 13.4 thou/uL (1.40-6.50); %Eosinophils 0.2 % (0.0-10.0); %Lymphocytes 6.1 % (21.0-51.0); %Monocytes 8.2 % (0.0-10.0); %Neutrophils 85.5 % (42.0-75.0); Hemoglobin 9.4 g/dL (14.0-18.0); Mean Corpuscular HGB CONC 33.9 g/dL (32.0-36.0); Mean Corpuscular Hemoglobin 31.8 pg (27.0-31.0); Mean Corpuscular Volume 93.8 fl (80.0-94.0); Mean Platelet Volume 7.1 fL (7.4-10.4); Platelet Count 178 thou/uL (130-400); RBC Distribution Width 11.6 % (11.5-14.5); Red Blood Cell (RBC) Count 2.95 mill/uL (4.70-6.10); White Blood Cell (WBC) Count 15.7 thou/uL (4.8-10.8)
[2017-06-05 05:33] LABS: Anion Gap 7 mmol/L (10-20); BUN (Urea Nitrogen) 17 mg/dL (8.4-25.7); Calc. Creatinine Clearance 108 mL/min (70-130); Calcium 7.9 mg/dL (7.8-10.44); Carbon Dioxide 27 mmol/L (23-31); Chloride 106 mmol/L (98-107); Estimated GFR-MDRD Greater than 90; Glucose 105 mg/dL (83-110); Potassium 3.8 mmol/L (3.5-5.1); Sodium 136 mmol/L (136-145)
[2017-06-05] MEDS ORDERED: Furosemide 40 MG/4 ML VIAL SLOW IVP SCH (07:00)
[2017-06-05] MEDS: Aspirin 325 MG TAB PO SCH (08:37)
[2017-06-05] MEDS: Finasteride 5 MG TAB PO SCH (08:37)
[2017-06-05] MEDS: Tamsulosin HCl 0.4 MG CAP PO SCH (08:37)
[2017-06-05] MEDS: Lisinopril 2.5 MG TAB PO SCH (08:39)
[2017-06-05] MEDS: Famotidine 20 MG TAB PO SCH ×2 (08:39→21:39)
--- NOTE | 2017-06-05 09:13 | PDOC.CTH ---
<Linda Abbott - Last Filed: 06/05/17 09:09> Cardiology Progress Note - Subjective The pt seen and examined. No overnight events. No cardiac complaints. Up to chair this AM. Encourage to use IS q1hr to prevent PNA. - Objective Vital Signs Temp Pulse 06/05/17 08:39 89 06/05/17 04:00 98.1 F 06/05/17 00:00 98.2 F Admit Weight 186 lb 1.122 oz Weight 193 lb 12.581 oz 06/04/17 06/05/17 06/06/17 06:59 06:59 06:59 Intake Total 1533 1269 Output Total 1495 1276 120 Balance 38 -7 -120 - Physical Examination General/Neuro: alert & oriented x3 Neck: no JVD present Lungs: other: (diminished at bases) Heart: RRR Abdomen: soft Extremities: other: (No edema; MSI TRANSFORMATION COACH; MARVA to RLE) - Telemetry Telemetry Rhythm: [id number] - Labs Result Diagrams: 06/05/17 04:23 06/05/17 04:23 Troponin/CKMB CK-MB (CK-2) 34.8 ng/mL (0-6.6) H* 06/02/17 21:49 Troponin I 6.447 ng/mL (< 0.028) H* 06/02/17 21:49 - Assessment/Plan 1. CAD with s/p CABG x5 on 06/03/17 with ROYAL-mid LAD, Saph-OM2 to Diag, and Saph-OM4 to OM 3. Stable with ASA 325mg daily, Lipitor 10mg qd, and Lisinopril 2.5mg qd. Start Coreg 3.125mg BID from this AM. Cont. to monitor on Tele 2. HTN - start Coreg 3.125mg BID. Cont. to monitor MAR reviewed * Echo on 06/03/17 showed EF 60-65%, grade I diastolic dysfunction, mod dilated LA, normal RA, mild MR, trace TR, and mild MD. Review of Systems - Review of Systems Constitutional: reports: no symptoms reported EENTM: reports: no symptoms reported Respiratory: reports: no symptoms reported Cardiac (ROS): reports: no symptoms reported ABD/GI: reports: no symptoms reported : reports: no symptoms reported Musculoskeletal: reports: no symptoms reported <Nails,G Lane - Last Filed: 06/05/17 16:42> Cardiology Progress Note - Objective Vital Signs Temp Pulse Resp Pulse Ox 06/05/17 12:00 98.5 F 06/05/17 08:39 89 06/05/17 08:00 98.4 F 89 20 98 Admit Weight 186 lb 1.122 oz Weight 193 lb 12.581 oz 06/04/17 06/05/17 06/06/17 06:59 06:59 06:59 Intake Total 1533 1269 Output Total 1495 1276 1565 Balance 38 -7 -1565 - Labs Result Diagrams: 06/05/17 04:23 06/05/17 04:23 Troponin/CKMB CK-MB (CK-2) 34.8 ng/mL (0-6.6) H* 06/02/17 21:49 Troponin I 6.447 ng/mL (< 0.028) H* 06/02/17 21:49 - Assessment/Plan Pt. was seen and eval. by me. I agree with the a/P by the ROLLER COASTER OPERATOR.No c/o. Chest clear. RRR. Chest tubes still in. I agree with the present meds.
[2017-06-05] MEDS ORDERED: Carvedilol 3.125 MG TAB PO SCH (09:15)
--- NOTE | 2017-06-05 10:00 | RAD ---
PORTABLE AP CHEST: Date: 06/05/17 HISTORY: Post open heart surgery. COMPARISON: 06/04/17. FINDINGS: Right subclavian central venous catheter and left-sided thoracostomy tube and mediastinal drains drea in in place and unchanged in position. Postsurgical changes related to CABG are again present. Cardia c silhouette is enlarged. There is persistent mild elevation of the right hemidiaphragm. There is inc reased density at each lung base which is probably related to atelectasis, although pleural effusion at either lung base cannot be entirely excluded. Pulmonary vasculature is within normal limits No pne umothorax is present and there is no other interval change. IMPRESSION: 1. Lines and tubes remain in place and unchanged in position. 2. Mild cardiomegaly without pulmonary vascular congestion. 3. Bibasilar atelectasis. Small bilateral pleural effusions cannot be entirely excluded. POS: [facility]
--- NOTE | 2017-06-05 10:31 | PDOC.PN ---
- Subjective Encounter Start Date: 06/05/17 Encounter Start Time: 10:29 Mr. Ann was seen today in follow-up of HTN and DM, in recent CABG. His only complaint this morning is some " stress pain " in the back of his left shoulder. He says it is not in relation to movement, or position. He admits having this same pain off and on prior to his surgery. - Objective Resuscitation Status: Resuscitation Status FULL:Full Resuscitation MAR Reviewed: Yes Vital Signs & Weight: Vital Signs (12 hours) Temp Pulse Resp Pulse Ox 06/05/17 08:39 89 06/05/17 08:00 98.4 F 89 20 98 06/05/17 04:00 98.1 F 06/05/17 00:00 98.2 F Weight Admit Weight 186 lb 1.122 oz Weight 193 lb 12.581 oz Most Recent Monitor Data Heart Rate from ECG 104 NIBP 121/56 NIBP BP-Mean 69 Respiration from ECG 27 SpO2 97 I&O: 06/04/17 06/05/17 06/06/17 06:59 06:59 06:59 Intake Total 1533 1269 Output Total 1495 1276 215 Balance 38 -7 -215 Result Diagrams: 06/05/17 04:23 06/05/17 04:23 Additional Labs: Accuchecks 06/05/17 06/04/17 06/04/17 05:10 20:52 17:03 POC Glucose 115 H 122 H 111 H 06/04/17 06/04/17 12:00 09:51 POC Glucose 99 147 H Phys Exam - Physical Examination HEENT: PERRLA Respiratory: no wheezing, no rales, no rhonchi, clear to auscultation bilateral Cardiovascular: RRR, no significant murmur + rub, + 2/6 systolic murmur Gastrointestinal: soft, non-tender, no distention, positive bowel sounds Musculoskeletal: no edema Dx/Plan (1) CAD (coronary artery disease) Code(s): I25.10 - ATHSCL HEART DISEASE OF [place] CORONARY ARTERY W/O ANG PCTRS Status: Acute Qualifiers: Coronary Disease-Associated Artery/Lesion type: [place] artery Comment: multivessel disease, s/pCABG With Chest tubes with underwater seal. [place], Cardiology following. (2) STEMI (ST elevation myocardial infarction) Status: Acute Comment: Continue on Aspirin, BB, Statin, (3) Diabetes mellitus type 2, diet-controlled Code(s): E11.9 - TYPE 2 DIABETES MELLITUS WITHOUT COMPLICATIONS Status: Chronic Comment: Will encourage to take Ensure, has Doiet controlled DM type. (4) Hypertension Code(s): I10 - ESSENTIAL (PRIMARY) HYPERTENSION Status: Chronic Comment: Continue on Home MEds, BP at Goal. - Plan * DM- blood glucose is well controlled * HTN- blood pressure is stable * Left shoulder pain- ? Muscle strain- will give a trial of Lidoderm * CAD- he is s/p 5 vessel CABG- chest tubes are still in place- post op management per CV- surgery.
[2017-06-05] MEDS: Lidocaine 5% Patch TD SCH (11:45)
[2017-06-05] MEDS: diphenhydrAMINE 25 MG CAP PO PRN (12:29)
[2017-06-05] MEDS: Carvedilol 3.125 MG TAB PO SCH (17:30)
[2017-06-05] MEDS: Atorvastatin Calcium 10 MG TAB PO SCH (21:40)
--- NOTE | 2017-06-05 23:04 | PRG ---
DATE OF SERVICE: 06/05/2017 SUBJECTIVE: Mr. Lance Ann was evaluated this morning. He still has chest tubes in place. OBJECTIVE: GENERAL: He is in no distress. VITAL SIGNS: He is afebrile, heart rates in the 80s this evening, blood pressure 111/56. Intake and output is negative 7 mL today. Chest tube #1 was 320 mL out overnight and chest tube #2 was 280 mL overnight. IMPRESSION: Status post coronary artery bypass grafting after myocardial infarction, clinically stab noble. PLAN: Continue supportive care.
[2017-06-06] MEDS: Lidocaine Patch Removal 1 EACH TOP SCH ×2 (03:48→20:12)
[2017-06-06] MEDS: HYDROcodone/Acetaminophen 5/325 mg Tablet PO PRN ×2 (03:50→16:12)
[2017-06-06 04:42] LABS: Anion Gap 8 mmol/L (10-20); BUN (Urea Nitrogen) 16 mg/dL (8.4-25.7); Calc. Creatinine Clearance 108 mL/min (70-130); Calcium 8.1 mg/dL (7.8-10.44); Carbon Dioxide 29 mmol/L (23-31); Chloride 101 mmol/L (98-107); Estimated GFR-MDRD Greater than 90; Glucose 101 mg/dL (83-110); Potassium 3.4 mmol/L (3.5-5.1); Sodium 135 mmol/L (136-145)
[2017-06-06 04:46] LABS: #Eosinphils 0.1 thou/uL (0.0-0.7); #Monocytes 1.1 thou/uL (0.11-0.59); #Neutrophils 10.5 thou/uL (1.40-6.50); %Basophils 0.1 % (0.0-1.0); %Eosinophils 0.5 % (0.0-10.0); %Lymphocytes 7.7 % (21.0-51.0); %Neutrophils 82.7 % (42.0-75.0); Hemoglobin 9.2 g/dL (14.0-18.0); Mean Corpuscular HGB CONC 33.1 g/dL (32.0-36.0); Mean Corpuscular Hemoglobin 31.9 pg (27.0-31.0); Mean Corpuscular Volume 96.4 fl (80.0-94.0); Mean Platelet Volume 8.5 fL (7.4-10.4); Platelet Count 204 thou/uL (130-400); RBC Distribution Width 11.7 % (11.5-14.5); White Blood Cell (WBC) Count 12.7 thou/uL (4.8-10.8)
[2017-06-06] MEDS: diphenhydrAMINE 25 MG CAP PO PRN (08:12)
[2017-06-06] MEDS: Lisinopril 2.5 MG TAB PO SCH (08:44)
[2017-06-06] MEDS: Finasteride 5 MG TAB PO SCH (08:47)
[2017-06-06] MEDS: Carvedilol 3.125 MG TAB PO SCH ×2 (08:47→16:13)
[2017-06-06] MEDS: Famotidine 20 MG TAB PO SCH ×2 (08:47→20:11)
[2017-06-06] MEDS: Tamsulosin HCl 0.4 MG CAP PO SCH (08:47)
[2017-06-06] MEDS: Aspirin 325 MG TAB PO SCH (08:48)
--- NOTE | 2017-06-06 09:09 | RAD ---
CHEST 1 VIEW: HISTORY: Heart surgery. Followup. COMPARISON: 06/05/17. FINDINGS: Cardiac silhouette is magnified and enlarged. Pulmonary vasculature is engorged. Mediastinum is mid line with postoperative changes, aortic calcification, and a right subclavian vascular congestion. L eft thoracostomy tube remains in place. Bibasilar atelectasis has improved slightly. Small left api cortney pneumothorax is now apparent. shelter monitor leads overlie the chest. IMPRESSION: 1. Small left apical pneumothorax has developed. 2. Improved aeration of the lung bases. Otherwise, stable postoperative appearance of the chest. POS: [facility]
--- NOTE | 2017-06-06 09:12 | PDOC.PN ---
- Subjective Encounter Start Date: 06/06/17 Encounter Start Time: 09:11 Mr. Ann was seen today in follow-up of CADd Post CABG. He says he feels much better today,especially since he has " the tubes out". He still gets a little grabbing pain in the posterior left shoulder. He deies shortness of breath. - Objective Resuscitation Status: Resuscitation Status FULL:Full Resuscitation MAR Reviewed: Yes Vital Signs & Weight: Vital Signs (12 hours) Temp Pulse Resp BP 06/06/17 08:44 102 H 118/87 06/06/17 07:18 98.7 F 102 H 20 06/06/17 04:00 98.7 F 06/06/17 00:00 98.5 F Weight Admit Weight 186 lb 1.122 oz Weight 190 lb 4.143 oz Most Recent Monitor Data Heart Rate from ECG 90 NIBP 122/67 NIBP BP-Mean 95 Respiration from ECG 16 SpO2 92 I&O: 06/05/17 06/06/17 06/07/17 06:59 06:59 06:59 Intake Total 1269 830 Output Total 1276 2610 Balance -7 -1780 Result Diagrams: 06/06/17 04:20 06/06/17 04:20 Additional Labs: Accuchecks 06/06/17 06/05/17 06/05/17 06:11 21:46 18:00 POC Glucose 116 H 195 H 146 H 06/05/17 12:06 POC Glucose 152 H Phys Exam - Physical Examination HEENT: PERRLA Respiratory: no wheezing, no rales, no rhonchi, clear to auscultation bilateral Cardiovascular: RRR, no significant murmur + rub, but less prominenet today than yesterday Gastrointestinal: soft, non-tender, no distention, positive bowel sounds Musculoskeletal: no edema Dx/Plan (1) CAD (coronary artery disease) Code(s): I25.10 - ATHSCL HEART DISEASE OF [place] CORONARY ARTERY W/O ANG PCTRS Status: Acute Qualifiers: Coronary Disease-Associated Artery/Lesion type: [place] artery Comment: multivessel disease, s/pCABG With Chest tubes with underwater seal. [place], Cardiology following. (2) STEMI (ST elevation myocardial infarction) Status: Acute Comment: Continue on Aspirin, BB, Statin, (3) Diabetes mellitus type 2, diet-controlled Code(s): E11.9 - TYPE 2 DIABETES MELLITUS WITHOUT COMPLICATIONS Status: Chronic Comment: Will encourage to take Ensure, has Doiet controlled DM type. (4) Hypertension Code(s): I10 - ESSENTIAL (PRIMARY) HYPERTENSION Status: Chronic Comment: Continue on Home MEds, BP at Goal. - Plan * DM- blood glucose is stable. * HTN- blood pressure is also stable * Shoulder pain- improved * CAD- he is status post % vessel CABG, and chest tubes have been removed.- continue as per Dr. Jesus
[2017-06-06] MEDS ORDERED: Potassium Chloride 20 MEQ TAB PO SCH (09:30)
--- NOTE | 2017-06-06 10:29 | PRG ---
DATE OF SERVICE: 06/06/2017 SUBJECTIVE: Mr. Lance Ann has all of his chest tubes out. He is in no distress. He actually looks well. He was sitting up in the chair. OBJECTIVE: VITAL SIGNS: Heart rate of 102, blood pressure 118/87, respiratory rate was 14. LUNGS: Clear. HEART: Regular rhythm, no S3. ABDOMEN: Soft and nontender. EXTREMITIES: Without clubbing, cyanosis, or edema. Moves all extremities equally. LABORATORY DATA: White count is 4.7, hemoglobin 9.2, platelets 204. Sodium 135, potassium 3.4, chlo ride 101, bicarbonate 29, BUN 16, creatinine 0.7. IMPRESSION AND PLAN: Status post coronary artery bypass grafting, doing well, stable to move out of critical care.
[2017-06-06] MEDS: Lidocaine 5% Patch TD SCH (10:31)
--- NOTE | 2017-06-06 12:42 | PDOC.CTH ---
Cardiology Progress Note - Subjective pt. seen and eval. by me. No complaints. Doing well s/p CABG. - ROS chest pain (ROS is negative for CP. SOB or edema.) - Objective Vital Signs Temp Pulse Resp BP 06/06/17 08:44 102 H 118/87 06/06/17 08:00 98.5 F 06/06/17 07:18 98.7 F 102 H 20 06/06/17 04:00 98.7 F Admit Weight 186 lb 1.122 oz Weight 190 lb 4.143 oz 06/05/17 06/06/17 06/07/17 06:59 06:59 06:59 Intake Total 1269 830 Output Total 1276 2610 400 Balance -5 -9934 -400 - Physical Examination General/Neuro: alert & oriented x3 Neck: carotid US brisk Lungs: CTA Heart: RRR Abdomen: NT/ND - Labs Result Diagrams: 06/06/17 04:20 06/06/17 04:20 Troponin/CKMB CK-MB (CK-2) 34.8 ng/mL (0-6.6) H* 06/02/17 21:49 Troponin I 6.447 ng/mL (< 0.028) H* 06/02/17 21:49 - Assessment/Plan 1. CAD with s/p CABG x5 on 06/03/17 with ROYAL-mid LAD, Saph-OM2 to Diag, and Saph-OM4 to OM 3. Stable with ASA 325mg daily, Lipitor 10mg qd, and Lisinopril 2.5mg qd. continue Coreg . Cont. to monitor on Tele when a bed uis available. 2. HTN - continue Coreg BID. Cont. to monitor MAR reviewed 3. Add statins. * Echo on 06/03/17 showed EF 60-65%, grade I diastolic dysfunction, mod dilated LA, normal RA, mild MR, trace TR, and mild TN. Review of Systems
[2017-06-06] MEDS: Atorvastatin Calcium 10 MG TAB PO SCH (20:11)
[2017-06-07 06:01] LABS: #Eosinphils 0.1 thou/uL (0.0-0.7); #Lymphocytes 0.9 thou/uL (1.20-3.40); #Monocytes 0.9 thou/uL (0.11-0.59); #Neutrophils 7.5 thou/uL (1.40-6.50); %Basophils 0.1 % (0.0-1.0); %Eosinophils 0.7 % (0.0-10.0); %Lymphocytes 9.4 % (21.0-51.0); %Neutrophils 79.8 % (42.0-75.0); Hemoglobin 9.2 g/dL (14.0-18.0); Mean Corpuscular HGB CONC 33.5 g/dL (32.0-36.0); Mean Corpuscular Hemoglobin 31.5 pg (27.0-31.0); Mean Corpuscular Volume 93.9 fl (80.0-94.0); Platelet Count 235 thou/uL (130-400); RBC Distribution Width 11.7 % (11.5-14.5); White Blood Cell (WBC) Count 9.4 thou/uL (4.8-10.8)
[2017-06-07 06:11] LABS: Anion Gap 9 mmol/L (10-20); BUN (Urea Nitrogen) 17 mg/dL (8.4-25.7); Calc. Creatinine Clearance 120 mL/min (70-130); Calcium 8.1 mg/dL (7.8-10.44); Carbon Dioxide 27 mmol/L (23-31); Chloride 102 mmol/L (98-107); Estimated GFR-MDRD Greater than 90; Glucose 115 mg/dL (83-110); Potassium 3.9 mmol/L (3.5-5.1); Sodium 134 mmol/L (136-145)
[2017-06-07] MEDS: HYDROcodone/Acetaminophen 5/325 mg Tablet PO PRN (07:28)
[2017-06-07 07:35] VITALS: BP 140/65; TEMP 98.8
[2017-06-07] MEDS: Famotidine 20 MG TAB PO SCH (08:20)
[2017-06-07] MEDS: Aspirin 325 MG TAB PO SCH (08:20)
[2017-06-07] MEDS: Finasteride 5 MG TAB PO SCH (08:20)
[2017-06-07] MEDS: Tamsulosin HCl 0.4 MG CAP PO SCH (08:21)
[2017-06-07] MEDS: Carvedilol 3.125 MG TAB PO SCH (08:21)
[2017-06-07] MEDS: Lisinopril 2.5 MG TAB PO SCH (08:21)
[2017-06-07] MEDS: Lidocaine 5% Patch TD SCH (10:00)
--- NOTE | 2017-06-08 01:06 | DIS ---
PRIMARY CARE PHYSICIAN: Dr. Parveen Lockwood. DATE OF ADMISSION: 06/02/2017 DATE OF DISCHARGE: 06/07/2017 DISCHARGE DISPOSITION: 1. Coronary artery disease status post 5-vessel bypass surgery. 2. Hypertension. 3. Diabetes mellitus, type 2. DISCHARGE MEDICATIONS: Include aspirin 325 mg daily, Coreg 3.125 mg twice a day, Proscar 5 mg daily, [place] 5/325 q.4 hours as needed, losartan/hydrochlorothiazide 100/25 daily, omeprazole 20 mg daily, potassium chloride 10 mEq daily, simvastatin 20 mg daily, and Flomax 0.4 mg daily. PROCEDURES DONE DURING ADMISSION: The patient had a 5-vessel bypass. He also had an echocardiogram in which the ejection fraction was estimated at 60-65% with grade I/III diastolic dysfunction. [facility] also had bilateral carotid Dopplers showing some visualized plaque in the left internal caroti d and distal common carotid artery, but no hemodynamically significant stenosis and the patient had a cardiac catheterization showing multivessel coronary artery disease with an LV ejection fraction est imated at 60%. CODE STATUS: FULL CODE. ALLERGIES: No known drug allergies. HOSPITAL COURSE: Mr. Ann is a pleasant 76-year-old gentleman who had presented to his primary care physician complaining of crushing chest pain across the front of his chest. He was directed to go t o the emergency room where he was found to have an ST-segment elevated UT. He was sent to the emerge ncy room and underwent urgent cardiac catheterization. He was found to have a 5-vessel disease. Vas cular Surgery was consulted and he ultimately underwent 5-vessel bypass surgery. The patient had a b asically uneventful postoperative course. The Hospitalist Service was consulted to help manage medic al issues as they arise. He was started back on his other medications for hypertension as well as fo r BPH. After the chest tubes were removed and the patient was ambulating without difficulty and was cleared by Vascular Surgery. He was discharged home on 06/07/2017. He is to follow up with Dr. Rylee abel as instructed and also with his primary care physician in 1-2 weeks.
[2017-06-10 10:39] LABS: CO2 Tension 36.2 mmHg (35.0-45.0); pH, Arterial 7.44 (7.35-7.45)
[2017-06-10 10:41] LABS: Analyzer IN Cardio OR; Base Excess (BEa) 0.3 mEq/L (0 (+/-) 2.5); Calcium, Ionized 1.2 mmol/L (1.12-1.30); Hematocrit-ABG 42.8 % (42.0-52.0); Hemoglobin (Hb) 14.5 g/dL (14.0-18.0); O2 Tension (PaO2) 536.9 mmHg (80.0-100.0)
[2017-06-10 10:42] LABS: Puncture Site ALINE
[2017-06-10 10:45] LABS: Actual Bicarbonate (HCO3a) 23.3 mEq/L (22-26); Base Excess (BEa) -0.8 mEq/L (0 (+/-) 2.5); O2 Tension (PaO2) 424.4 mmHg (80.0-100.0); pH, Arterial 7.42 (7.35-7.45)
[2017-06-10 10:46] LABS: Analyzer IN Cardio OR; pH (venous) 7.35 (7.35-7.45)
[2017-06-10 10:46] LABS: Analyzer IN Cardio OR; Calcium, Ionized 1.1 mmol/L (1.12-1.30); Hematocrit-ABG 39.3 % (42.0-52.0); Hemoglobin (Hb) 13.3 g/dL (14.0-18.0); Puncture Site ALINE
[2017-06-10 10:47] LABS: Actual Bicarbonate (HCO3v) 26 mEq/L (22-26); Base Excess -0.2 mEq/L (0 (+/- 2.5)); Hematocrit-VBG 25.5 % (37-51); Hemoglobin (Hb) 9.3 g/dL (12.6-17.4)
[2017-06-10 10:48] LABS: Calcium, Ionized 0.98 mmol/L (1.16-1.32); Chloride (ABG LAB) 104 mmol/L (98-106); Potassium - ABG Lab 3.4 mmol/L (3.70-5.30); Sodium 141.2 mmol/L (133-146)
[2017-06-10 10:48] LABS: Actual Bicarbonate (HCO3a) 25.4 mEq/L (22-26); Base Excess (BEa) -0.2 mEq/L (0 (+/-) 2.5); CO2 Tension 45.9 mmHg (35.0-45.0); O2 Tension (PaO2) 427.4 mmHg (80.0-100.0); pH, Arterial 7.36 (7.35-7.45)
[2017-06-10 10:49] LABS: Hematocrit-ABG 26.2 % (42.0-52.0); Hemoglobin (Hb) 9.4 g/dL (14.0-18.0)
[2017-06-10 10:50] LABS: Actual Bicarbonate (HCO3a) 24.9 mEq/L (22-26); Base Excess (BEa) -0.5 mEq/L (0 (+/-) 2.5); CO2 Tension 44.7 mmHg (35.0-45.0); Hematocrit-ABG 27.6 % (42.0-52.0); Hemoglobin (Hb) 9.8 g/dL (14.0-18.0); O2 Tension (PaO2) 372.6 mmHg (80.0-100.0); pH, Arterial 7.37 (7.35-7.45)
[2017-06-10 10:50] LABS: Analyzer IN Cardio OR; Puncture Site ALINE
[2017-06-10 10:51] LABS: Analyzer IN Cardio OR; Calcium, Ionized 1.1 mmol/L (1.12-1.30); Puncture Site ALINE
[2017-06-10 10:51] LABS: Actual Bicarbonate (HCO3a) 24.4 mEq/L (22-26); Base Excess (BEa) -1.3 mEq/L (0 (+/-) 2.5); CO2 Tension 45.8 mmHg (35.0-45.0); O2 Tension (PaO2) 395.9 mmHg (80.0-100.0); pH, Arterial 7.35 (7.35-7.45)
[2017-06-10 10:52] LABS: Actual Bicarbonate (HCO3a) 24.4 mEq/L (22-26); Base Excess (BEa) -0.4 mEq/L (0 (+/-) 2.5); CO2 Tension 40.6 mmHg (35.0-45.0); Hematocrit-ABG 27.8 % (42.0-52.0); O2 Tension (PaO2) 319.7 mmHg (80.0-100.0)
[2017-06-10 10:52] LABS: Analyzer IN Cardio OR; Calcium, Ionized 1.1 mmol/L (1.12-1.30); Hematocrit-ABG 26.6 % (42.0-52.0); Hemoglobin (Hb) 9.5 g/dL (14.0-18.0); Puncture Site ALINE
[2017-06-10 10:53] LABS: pH, Arterial 7.37 (7.35-7.45)
[2017-06-10 10:53] LABS: Analyzer IN Cardio OR; Calcium, Ionized 1.1 mmol/L (1.12-1.30); Hemoglobin (Hb) 9.9 g/dL (14.0-18.0); Puncture Site ALINE
[2017-06-10 10:54] LABS: Actual Bicarbonate (HCO3a) 23.4 mEq/L (22-26); Analyzer IN Cardio OR; Base Excess (BEa) -1.8 mEq/L (0 (+/-) 2.5); CO2 Tension 41.3 mmHg (35.0-45.0); Hematocrit-ABG 31.4 % (42.0-52.0); Hemoglobin (Hb) 11.1 g/dL (14.0-18.0); O2 Tension (PaO2) 400.7 mmHg (80.0-100.0); Puncture Site ALINE
--- NOTE | 2017-06-26 15:05 | EKG ---
Test Reason : Blood Pressure : / mmHG Vent. Rate : 069 BPM Atrial Rate : 069 BPM P-R Int : 200 ms QRS Dur : 100 ms QT Int : 422 ms P-R-T Axes : 068 -20 064 degrees QTc Int : 452 ms Sinus rhythm with occasional Premature ventricular complexes Low voltage QRS Inferior infarct , age undetermined Cannot rule out Anterior infarct , age undetermined Abnormal ECG Confirmed by LANETTE JIM ([id number]), food editor TANYA PAYTON ([id number]) on 06/26/2017 3:04:25 PM Referred By: Confirmed By:LANETTE JIM
--- NOTE | 2017-06-26 15:05 | EKG ---
Test Reason : STEMI Blood Pressure : / mmHG Vent. Rate : 070 BPM Atrial Rate : 070 BPM P-R Int : 224 ms QRS Dur : 104 ms QT Int : 426 ms P-R-T Axes : 058 -14 061 degrees QTc Int : 460 ms Poor data quality, interpretation may be adversely affected Sinus rhythm with 1st degree A-V block Low voltage QRS Inferior infarct , age undetermined Anterior infarct , possibly acute * ACUTE CA * Abnormal ECG Confirmed by LANETTE JIM ([id number]), sound editor TANYA PAYTON ([id number]) on 06/26/2017 3:04:24 PM Referred By: Confirmed By:LANETTE JIM
--- NOTE | 2017-06-26 15:05 | EKG ---
Test Reason : STEMI Blood Pressure : / mmHG Vent. Rate : 071 BPM Atrial Rate : 071 BPM P-R Int : 222 ms QRS Dur : 098 ms QT Int : 424 ms P-R-T Axes : 033 -15 060 degrees QTc Int : 460 ms Sinus rhythm with 1st degree A-V block Low voltage QRS Borderline ECG Confirmed by LANETTE JIM ([id number]), editor managing director TANYA PAYTON ([id number]) on 06/26/2017 3:04:25 PM Referred By: Confirmed By:LANETTE JIM
--- NOTE | 2017-06-30 10:59 | EKG ---
Test Reason : Blood Pressure : / mmHG Vent. Rate : 067 BPM Atrial Rate : 067 BPM P-R Int : 172 ms QRS Dur : 098 ms QT Int : 448 ms P-R-T Axes : 045 003 049 degrees QTc Int : 473 ms Normal sinus rhythm Nonspecific ST abnormality Abnormal ECG No previous ECGs available Confirmed by OSMANI HENDRICKS M.D. ([id number]) on 06/30/2017 10:59:15 AM Referred By: MARIBEL Confirmed By:OSMANI HENDRICKS M.D.
--- NOTE | 2017-06-30 11:09 | EKG ---
Test Reason : POST OP CABG Blood Pressure : / mmHG Vent. Rate : 070 BPM Atrial Rate : 070 BPM P-R Int : 194 ms QRS Dur : 172 ms QT Int : 548 ms P-R-T Axes : 000 049 218 degrees QTc Int : 591 ms AV dual-paced rhythm Abnormal ECG When compared with ECG of 03-JUN-2017 16:12, (Unconfirmed) No significant change was found Confirmed by OSMANI HENDRICKS M.D. ([id number]) on 06/30/2017 11:08:59 AM Referred By: Confirmed By:OSMANI HENDRICKS M.D.
--- NOTE | 2017-06-30 11:10 | EKG ---
Test Reason : POST OP CABG Blood Pressure : / mmHG Vent. Rate : 060 BPM Atrial Rate : 060 BPM P-R Int : 226 ms QRS Dur : 100 ms QT Int : 506 ms P-R-T Axes : 058 004 -68 degrees QTc Int : 506 ms Sinus rhythm with 1st degree A-V block with frequent AV dual-paced complexes and with occasional Karlos ature ventricular complexes Low voltage QRS Prolonged QT Abnormal ECG Confirmed by OSMANI HENDRICKS M.D. ([id number]) on 06/30/2017 11:09:42 AM Referred By: Confirmed By:OSMANI HENDRICKS M.D.
== END 2017-06-07 10:25 | disposition home or self-care (01) | DRG 234 ==
LOC: ERS 14:29 → CCU 14:47 → CCL 15:29 → CCU 16:30 → 2NO 06-06 14:35
PROVIDERS: ADMIT Internal Medicine Cardiovascular Disease; ATTEND Internal Medicine Cardiovascular Disease
PROC: 4A023N7 Measurement of Cardiac Sampling and Pressure, Left Heart, Percutaneous Approach (ICD-10-PCS; 2017-06-02)
PROC: B2111ZZ Fluoroscopy of Multiple Coronary Arteries using Low Osmolar Contrast (ICD-10-PCS; 2017-06-02)
PROC: B2151ZZ Fluoroscopy of Left Heart using Low Osmolar Contrast (ICD-10-PCS; 2017-06-02)
PROC: 021309W Bypass Coronary Artery, Four or More Arteries from Aorta with Autologous Venous Tissue, Open Approach (ICD-10-PCS; principal; 2017-06-03)
PROC: 02100Z9 Bypass Coronary Artery, One Artery from Left Internal Mammary, Open Approach (ICD-10-PCS; 2017-06-03)
PROC: 06BQ4ZZ Excision of Left Saphenous Vein, Percutaneous Endoscopic Approach (ICD-10-PCS; 2017-06-03)
PROC: 5A1221Z Performance of Cardiac Output, Continuous (ICD-10-PCS; 2017-06-03)
DX: I21.19 ST elevation (STEMI) myocardial infarction involving other coronary artery of inferior wall (principal); E11.9 Type 2 diabetes mellitus without complications; I10 Essential (primary) hypertension; I25.10 Atherosclerotic heart disease of native coronary artery without angina pectoris; N40.0 Benign prostatic hyperplasia without lower urinary tract symptoms
CPT/HCPCS: 36415; 36416; 36430; 71045; 80048; 80053; 82553; 82805; 83036; 83690; 84484; 85025; 85610; 85730; 86850; 86900; 86901; 90471; 90670; 93005; 93010; 93306; 93458; 93798; 93880; 94002; 94150; 94760; A4216; C1769; C9113; G0009; J0690; J1200; J1265; J1642; J1644; J1815; J1885; J1940; J2001; J2250; J2270; J2370; J2440; J2704; J2720; J3010; J3475; J3480; J7050; P9045; S0017

== ENCOUNTER 2017-06-09 15:37 | Inpatient (IN) | payer MEDICARE ==
[2017-06-09 17:25] LABS: Troponin I 0.301 ng/mL (< 0.028)
[2017-06-09] MEDS ORDERED: Furosemide 20 MG/2 ML VIAL ONE (17:28)
[2017-06-09] MEDS ORDERED: Ondansetron ODT 4 MG TAB PO PRN (19:57)
[2017-06-09] MEDS ORDERED: Nitroglycerin 0.4 MG TAB (25 Tab Bottle) PO PRN (19:57)
[2017-06-09] MEDS ORDERED: HYDROcodone/Acetaminophen 5/325 mg Tablet PO PRN (19:57)
[2017-06-09] MEDS ORDERED: cefTRIAXone\\ROCEPHIN 1 GM in Sodium Chloride 0.9% 100 ML IVPB SCH (19:57)
[2017-06-09] MEDS: HYDROcodone/Acetaminophen 5/325 mg Tablet PO PRN (20:04)
[2017-06-09] MEDS: Docusate 100 MG CAP PO SCH (20:06)
[2017-06-09] MEDS: Simvastatin 20 MG TAB PO SCH (20:06)
[2017-06-09] MEDS: Carvedilol 3.125 MG TAB PO SCH (20:06)
[2017-06-09] MEDS: Losartan/Hydrochlorothiazide 100 mg/25 mg Tablet PO SCH (20:07)
[2017-06-09] MEDS: Azithromycin 500 MG in Sodium Chloride 0.9% 250 ML 250 ML IVPB SCH (20:21)
[2017-06-09] MEDS: cefTRIAXone\\ROCEPHIN 1 GM, Syringe 0.4 ML in Sterile Water 9.6 ML SLOW IVP SCH (20:22)
[2017-06-09 21:00] LABS: Troponin I 0.272 ng/mL (< 0.028)
[2017-06-09] MEDS ORDERED: Enoxaparin Sodium 80 MG/0.8 ML SYRINGE SC SCH (21:00)
[2017-06-09] MEDS ORDERED: Pantoprazole 40 MG VIAL IVP SCH (21:00)
[2017-06-09 22:21] VITALS: BMI 26.2
[2017-06-09 23:07] LABS: Troponin I 0.253 ng/mL (< 0.028)
[2017-06-10] MEDS: HYDROcodone/Acetaminophen 5/325 mg Tablet PO PRN ×2 (02:28→07:03)
[2017-06-10 05:59] LABS: Anion Gap 8 mmol/L (10-20); BUN (Urea Nitrogen) 13 mg/dL (8.4-25.7); Calc. Creatinine Clearance 97 mL/min (70-130); Calcium 8.3 mg/dL (7.8-10.44); Carbon Dioxide 31 mmol/L (23-31); Chloride 96 mmol/L (98-107); Estimated GFR-MDRD Greater than 90; Glucose 126 mg/dL (83-110); Potassium 3.8 mmol/L (3.5-5.1); Sodium 131 mmol/L (136-145)
[2017-06-10] MEDS ORDERED: Furosemide 20 MG/2 ML VIAL SLOW IVP SCH (06:00)
[2017-06-10 06:16] LABS: Hemoglobin 9.2 g/dL (14.0-18.0); Lymphocytes 10 % (21-51); MDiff Complete? YES; Mean Corpuscular HGB CONC 33.3 g/dL (32.0-36.0); Mean Corpuscular Hemoglobin 31.6 pg (27.0-31.0); Mean Platelet Volume 7.1 fL (7.4-10.4); Monocytes 13 % (0-10); Neutrophil 76 % (42-75); PLT Morphology Comment Appears Adequate; Platelet Count 307 thou/uL (130-400); RBC Distribution Width 11.8 % (11.5-14.5); RBC Morphology Normal; Reactive Lymphocytes 1 % (0-10); White Blood Cell (WBC) Count 10.5 thou/uL (4.8-10.8)
[2017-06-10] MEDS ORDERED: Naproxen 500 MG TAB PO PRN (08:35)
[2017-06-10] MEDS ORDERED: Enoxaparin Sodium 80 MG/0.8 ML SYRINGE SC SCH (09:00)
[2017-06-10] MEDS: Docusate 100 MG CAP PO SCH ×2 (10:16→20:17)
[2017-06-10] MEDS: Potassium Chloride 10 MEQ TAB PO SCH (10:16)
[2017-06-10] MEDS: Aspirin 325 MG TAB PO SCH (10:16)
[2017-06-10] MEDS: Carvedilol 3.125 MG TAB PO SCH (10:17)
[2017-06-10] MEDS: Tamsulosin HCl 0.4 MG CAP PO SCH (10:17)
[2017-06-10] MEDS: Finasteride 5 MG TAB PO SCH (10:17)
--- NOTE | 2017-06-10 12:02 | PDOC.PN ---
- Subjective Encounter Start Date: 06/10/17 Encounter Start Time: 12:00 Subjective: f/u for SIRS with ? PNA s/p CABG tx with Zithromax and Rocephin -: pending cx results. PCXR unrevealing to obvious infiltrate. Pt states -: he feels better today. Minimal cough, no fever. - Objective Resuscitation Status: Resuscitation Status FULL:Full Resuscitation MAR Reviewed: Yes Vital Signs & Weight: Vital Signs (12 hours) Temp Pulse Resp BP Pulse Ox 06/10/17 08:00 97.5 F L 88 18 137/63 06/10/17 06:21 97 06/10/17 04:00 99.7 F H 79 18 133/60 95 06/10/17 00:00 98.7 F 76 18 116/56 L 96 Weight Weight 182 lb 15.739 oz I&O: 06/09/17 06/10/17 06/11/17 06:59 06:59 06:59 Intake Total 360 Balance 360 Result Diagrams: 06/10/17 05:19 06/10/17 05:19 Additional Labs: Accuchecks 06/10/17 06/10/17 06/09/17 11:01 05:52 21:09 POC Glucose 119 H 131 H 178 H Microbiology 06/09/17 20:24 Venous blood - Left Arm Blood Culture - Preliminary Specimen has been received and culture in progress. No Growth to date. 06/09/17 20:21 Venous blood - Right Arm Blood Culture - Preliminary Specimen has been received and culture in progress. No Growth to date. Laboratory Tests 06/07/17 06/09/17 06/09/17 05:28 13:24 13:24 WBC 12.6 H Hgb 12.5 L Sodium 134 L 133 L Troponin I 06/09/17 06/09/17 06/09/17 16:41 20:24 22:32 WBC Hgb Sodium Troponin I 0.301 H* 0.272 H 0.253 H Radiology Reviewed by me: Yes (PCXR - no acute infiltrate) EKG Reviewed by me: Yes (Tele - SR) Phys Exam - Physical Examination Constitutional: NAD alert, talkative HEENT: PERRLA, oral pharynx no lesions Neck: no JVD, supple Respiratory: no wheezing II/ NAYA RUSB Cardiovascular: RRR, no rub, gallop Gastrointestinal: soft, non-tender, no distention, positive bowel sounds Musculoskeletal: no edema, pulses present Neurological: non-focal, normal sensation, moves all 4 limbs Psychiatric: normal affect, A&O x 3 Skin: no rash, normal turgor, cap refill <2 seconds Dx/Plan (1) SIRS (systemic inflammatory response syndrome) Code(s): R65.10 - SIRS OF NON-INFECTIOUS ORIGIN W/O ACUTE ORGAN DYSFUNCTION Status: Acute Comment: Continue Zithromax and Ceftriaxone pending final review of Ucx and Blood cx, continue supportive mgmt (2) Chest pain Code(s): R07.9 - CHEST PAIN, UNSPECIFIED Status: Acute Comment: Non-cardiac CP currently, supportive mgmt, continue mgmt as outlined in #1 (3) CAD (coronary artery disease) Code(s): I25.10 - ATHSCL HEART DISEASE OF [place] CORONARY ARTERY W/O ANG PCTRS Status: Chronic Qualifiers: Coronary Disease-Associated Artery/Lesion type: [place] artery Comment: multivessel disease, s/pCABG 06/03/17, continue ASA, Coreg, d/c Lovenox (4) STEMI (ST elevation myocardial infarction) Status: Acute Comment: Continue on Aspirin, BB, Statin, no acute infarct currently (5) Diabetes mellitus type 2, diet-controlled Code(s): E11.9 - TYPE 2 DIABETES MELLITUS WITHOUT COMPLICATIONS Status: Chronic Comment: A1C - 5.6, ADA diet (6) Hypertension Code(s): I10 - ESSENTIAL (PRIMARY) HYPERTENSION Status: Chronic Qualifiers: Hypertension type: essential hypertension Qualified Code(s): I10 - Essential (primary) hypertension Comment: Resume home BP regimen, serial monitoring - Plan continue antibiotics, social services analyst, out of bed/ambulate, DVT proph w/SCDs Stable overall -: Continue Zithromax and Rocephin -: Await final Ucx and Blood cx -: OOB/ambulate with Cardiac rehab -: D/C Lovenox Consult Cardiology service
[2017-06-10] MEDS: HYDROcodone/Acetaminophen 7.5/325 mg Tablet PO PRN ×3 (12:38→23:40)
[2017-06-10] MEDS ORDERED: Diltiazem 125 MG in Sodium Chloride 0.9% 100 ML IVPB SCH (12:45)
--- NOTE | 2017-06-10 12:47 | PDOC.EVN ---
Event Note - Event Note Event Note: Tele showing A-fib RVR in 130's, new-onset post-CABG 06/03/17, start Cardizem gtt , consult Cardiology service, check TSH and Mg++ level.
--- NOTE | 2017-06-10 14:08 | HP ---
CHIEF COMPLAINT: Chest pain. HISTORY OF PRESENT ILLNESS: This is a 76-year-old white male with a recent 3-vessel bypass at [facility] 6 days ago and was discharged home. He lives with his and was complaining of some chest tightness yesterday in the left precordium, more in the scapular area. It is not associated w ith any shortness of breath, not associated with nausea or vomiting. He did had some sweating and pe rspirations, had some mild cough, nonproductive and had a fever of 102 this morning. The patient and checked his blood pressures this morning; it was elevated to 190s, so he was immediately rushed to the ER for further evaluation. When patient arrived at [place] [facility], he had an aspirin given as the patient had elevated troponin and was also given a dose of Lovenox at that place. The patient was transferred to [place] [facility]. The patient had a repeat EKG here, which did not show any evidenc e of acute ST segment changes, but had markedly elevated troponin levels. This case was discussed by ER physician with Dr. Gibson, who advised to admit this patient for further evaluation. There was a chest x-ray done in the ER, which showed evidence of left lower lobe infilt rate suggestive of atelectasis. The patient had a mildly elevated white count of 12,000, but he does not appear to be in acute distress at this time. PAST MEDICAL HISTORY: 1. Hypertension. 2. Type 2 diabetes mellitus. 3. Coronary artery disease, status post CABG 3-vessel bypass. PAST SURGICAL HISTORY: 1. CABG bypass 6 days ago. 2. Cardiac catheterization in 1989. SOCIAL HISTORY: The patient is not a known alcoholic. No history of illicit drug use. No history o f smoking. FAMILY HISTORY: No significant family history of coronary artery disease and no cancers in the famil y. ALLERGIES: No known drug allergies. HOME MEDICATIONS: 1. Omeprazole 20 mg p.o. daily. 2. Coreg 3.125 mg p.o. b.i.d. 3. Hydrocodone. 4. Aspirin 325 mg p.o. daily. 5. Finasteride 5 mg p.o. daily. 6. Losartan/hydrochlorothiazide 1 tablet p.o. daily. 7. Potassium chloride 10 mEq p.o. daily. 8. Simvastatin 20 mg p.o. daily. 9. Tamsulosin 0.4 mg p.o. daily. REVIEW OF SYSTEMS: All 12 systems are reviewed with the patient thoroughly and found to be negative at this time. Systems reviewed are HEENT, CVS, SAW STRAIGHTENER, respiratory, GI, . The following complete review of systems was negative, unless otherwise mentioned in the HPI or below : Constitutional: Weight loss or gain, sense of well-being, ability to conduct usual activities, exerc ise tolerance. Skin/Breast: Rash, itching, changes in hair growth or loss, nail changes, breast lumps, tenderness, swelling, nipple discharge. Eyes: Vision, double vision, tearing, blind spots, pain. ENT/Mouth: Headaches (location, time of onset, duration, precipitating factors), vertigo, lightheade dness, injury. Vision, double vision, tearing, blind spots, pain, nose bleeding, colds, obstruction, discharge, dental difficulties, gingival bleeding, dentures, neck stiffness, pain, tenderness, masses in thyroid or other areas Cardiovascular: Precordial pain, substernal distress, palpitations, syncope, dyspnea on exertion, or thopnea, nocturnal paroxysmal dyspnea, edema, cyanosis, hypertension, heart murmurs, varicosities, ph lebitis, claudication. Respiratory: Pain, shortness of breath, wheezing, stridor, cough, hemoptysis, fever or night sweats. Gastrointestinal: Poor appetite, dysphagia, indigestion, abdominal pain, heartburn, eructation, naus ea, vomiting, hematemesis, jaundice, constipation, or diarrhea, abnormal stools (jasen-colored, tarry, bloody, greasy, foul smelling), flatulence, hemorrhoids, recent changes in bowel habits. Genitourinary: Urgency, frequency, dysuria, nocturia, hematuria, polyuria, oliguria, unusual (or demetrius nge in) color of urine, stones, hesitancy, change in size of stream, dribbling, acute retention or in continence, libido, potency. Musculoskeletal: Pain, swelling, redness or heat of muscles or joints, limitation, of motion, muscul ar weakness, atrophy, cramps. Neurologic/Psychiatric: Convulsions, paralyses, tremor, incoordination, paresthesias, difficulties w ith memory of speech, sensory or motor disturbances, or muscular coordination (ataxia, tremor), emoti onal problems, anxiety, depression, previous psychiatric care, unusual perceptions, hallucinations. Allergy/Immunologic: Skin rash, anemia, bleeding tendency, polydipsia, polyuria, intolerance to heat or cold. PHYSICAL EXAMINATION: VITAL SIGNS: Blood pressures are 134/88, heart rate is 90, respiratory rate is 18 and saturation is 98% on 2 liters. GENERAL: The patient is moderately built and moderately nourished. He does not appear to be in acut e distress at this time. He is alert and oriented x3. HEENT: Atraumatic and normocephalic. PERRLA. Extraocular movements were intact. Oral mucosa is pi nk and moist. CARDIOVASCULAR: S1 and S2 normal. No murmurs, rubs or gallops. LUNGS: Bilateral air entry was equal. No wheezing, no crackles. SKIN: The patient has a surgical scar with no evidence of any infection or erythema noted. ABDOMEN: Soft and nontender. No guarding, no rebound tenderness. Bowel sounds normal. MUSCULOSKELETAL: No calf tenderness. No pedal edema. No joint tenderness. No joint swelling. SKIN: No cyanosis, no erythema, no rash, no pallor. CENTRAL NERVOUS SYSTEM: Cranial examination II-XII intact. No focal deficits were noted. PSYCHIATRIC: No signs of suicidal ideation. No signs of whit. NECK: No JVD, no thyromegaly was noted. LABORATORY DATA: WBC 12.6, hemoglobin is 12.5, hematocrit is 37.4 and platelets of 394. Sodium is 133, potassium is 4.5, chloride is 94, BUN is 11, creatinine 0.85 and blood sugar 138. BNP is 815. IMAGING DATA: Chest x-ray was done today showing evidence of a possible infiltrate in the left lower lung and chest x-ray has been reviewed by me. EKG was reviewed by me, showed evidence of Q-waves, which could be a reason from his recent bypass. ASSESSMENT AND PLAN: 1. [id number] elevation myocardial infarction. 2. Acute left lung pneumonia or atelectasis. 3. Possible mild congestive heart failure, likely diastolic dysfunction. 4. Acute hyponatremia. 5. History of type 2 diabetes mellitus. 6. History of coronary artery disease. 7. Hypertension. PLAN: 1. Plan is to closely monitor. This patient had an elevated troponin. Initially, we will start the patient on Lovenox at 1 mg/kg b.i.d. and the patient will be followed by Cardiothoracic Surgery. We will continue the patient on the Coreg 3.125 mg b.i.d., aspirin and lisinopril. 2. The patient has mild evidence of congestive heart failure with elevated BNP. We will start the p atient on Lasix 20 mg IV b.i.d. and it does not show any evidence of volume overload at this time. 3. The patient has evidence of a left lower lobe infiltrate. We will start the patient on Rocephin 1 gram and azithromycin 500 mg IV daily and we will continue the nebulizer treatments and we will enc ourage the patient to use the incentive spirometry. The patient has mild elevated blood sugars. We will closely monitor with sliding scale insulin. 4. As patient has mild hyponatremia, this could be corrected with Lasix. We will closely monitor. 5. The patient has history of hypertension. Currently, the blood pressures are well controlled. We will restart the patient's home medications. 6. Deep venous thrombosis prophylaxis. Patient is on Lovenox. I spent 75 minutes with this patient.
[2017-06-10] MEDS ORDERED: Carvedilol 3.125 MG TAB PO SCH ×2 (17:00→19:15)
[2017-06-10] MEDS: Azithromycin 500 MG in Sodium Chloride 0.9% 250 ML 250 ML IVPB SCH (20:17)
[2017-06-10] MEDS: Losartan/Hydrochlorothiazide 100 mg/25 mg Tablet PO SCH (20:17)
[2017-06-10] MEDS: Simvastatin 20 MG TAB PO SCH (20:18)
[2017-06-10] MEDS: cefTRIAXone\\ROCEPHIN 1 GM, Syringe 0.4 ML in Sterile Water 9.6 ML SLOW IVP SCH (21:44)
--- NOTE | 2017-06-11 00:34 | CON ---
DATE OF CONSULTATION: 06/10/2017 CARDIOLOGY NOTE REASON FOR CONSULTATION: Recent surgery, atrial fibrillation with rapid ventricular response. PRIMARY PAPER MILL SUPERINTENDENT: Dr. Lane Nails. HISTORY OF PRESENT ILLNESS: Mr. Ann is a very pleasant 76-year-old man with atrial fibrillation, r ecent surgery. Mr. Ann recently underwent coronary artery bypass grafting successfully done 2017 for multivessel coronary disease. The patient had bypass surgery, internal mammary to the LAD m id and reverse vein graft to the second obtuse marginal, diagonal, obtuse marginal 3 and 4. The david ent did well postoperatively. He went home, but had fever, and some chest discomfort, no chest tight ness and came to the emergency room. He had fever of 102 degrees, also has had high blood pressure 1 90 systolic. He was given a dose of Lovenox, transferred here yesterday. Today it was noted that he had an episode of atrial fibrillation. They were about to give him intravenous diltiazem, but he wa s hypotensive. He was given a fluid bolus and converted to sinus rhythm. The patient is doing well now. PAST MEDICAL HISTORY: 1. Recent bypass surgery. 2. Diabetes. 3. Hypertension. PAST SURGICAL HISTORY: Bypass surgery as mentioned just about a week ago. SOCIAL HISTORY: No alcohol or tobacco. FAMILY HISTORY: Negative for heart disease on young age. ALLERGIES: None known. MEDICATIONS: 1. Omeprazole. 2. Coreg 3.125 mg twice a day. 3. Aspirin. 4. Losartan HCT. 5. Potassium. 6. Simvastatin. 7. Tamsulosin. REVIEW OF SYSTEMS: CONSTITUTIONAL: No significant weight gain or loss. VISION: No changes. HEARING: No changes. PULMONARY: No cough or wheezing. GASTROINTESTINAL: No nausea, vomiting, diarrhea. SKIN: No rashes. NEUROLOGIC: No unilateral weakness or numbness. PSYCHIATRIC: No unusual depression or anxiety. HEMATOLOGIC: No unusual bruising. GENITOURINARY: No burning with urination. PHYSICAL EXAMINATION: GENERAL: It is a delightful elderly gentleman resting comfortably in no distress, states he feels mu ch better today. VITAL SIGNS: Blood pressure 144/65, pulse 80s, sinus now, temperature 97.5. HEENT: Eyes: Sclerae nonicteric. Mouth: Mucous membranes moist. NECK: Supple, no lymphadenopathy. LUNGS: Clear, no wheezing, rales or rhonchi. CARDIAC: Normal S1, normal S2. There is a 2/6 apical systolic murmur, sounds like mitral regurgitat ion. ABDOMEN: Soft, nontender. EXTREMITIES: No clubbing or cyanosis. SKIN: Warm and dry. LABORATORY AND X-RAY FINDINGS: EKG now is sinus rhythm previously did have atrial fibrillation. He does have biphasic T waves in V3 and T-wave inversion in V4. On the laboratory monitor, there are toyin e T-wave inversions in the inferior leads. The patient's troponin level went up to some degree with peak troponin of 0.324 on admission, 0.253 l ater ASSESSMENT: 1. Recent bypass surgery. 2. Paroxysmal atrial fibrillation. 3. History of hypertension. 4. Fever, currently resolved. PLAN: 1. Increase beta stephanie. 2. Start him on Multaq. 3. Repeat EKG in the morning. Dr. Nails to resume patient's cardiology care in the morning.
[2017-06-11] MEDS: Docusate 100 MG CAP PO SCH ×2 (10:00→21:06)
[2017-06-11] MEDS: Potassium Chloride 10 MEQ TAB PO SCH (10:01)
[2017-06-11] MEDS: Aspirin 325 MG TAB PO SCH (10:01)
[2017-06-11] MEDS: Carvedilol 6.25 MG TAB PO SCH ×2 (10:01→17:14)
[2017-06-11] MEDS: Dronedarone HCl 400 MG TAB PO SCH ×2 (10:01→17:14)
[2017-06-11] MEDS: Tamsulosin HCl 0.4 MG CAP PO SCH (10:01)
[2017-06-11] MEDS: Finasteride 5 MG TAB PO SCH (10:02)
--- NOTE | 2017-06-11 14:36 | PDOC.CTH ---
<Linda Abbott - Last Filed: 06/11/17 14:31> Cardiology Progress Note - Subjective The pt seen and examined. No overnight events. No cardiac complaints. - Objective Vital Signs Temp Pulse Resp BP BP Pulse Ox 06/11/17 10:01 130/59 L 06/11/17 08:00 98.5 F 84 18 130/59 L 98 06/11/17 04:00 98.8 F 79 18 126/59 L 95 Weight 192 lb 9.6 oz 06/10/17 06/11/17 06/12/17 06:59 06:59 06:59 Intake Total 1700 Output Total 820 Balance 880 - Physical Examination General/Neuro: alert & oriented x3 Neck: no JVD present Lungs: other: (coases and diminished at bases) Heart: RRR Abdomen: soft Extremities: other: (1+ pitting edema in RLE;) - Labs Result Diagrams: 06/10/17 05:19 06/10/17 05:19 Troponin/CKMB CK-MB (CK-2) 1.0 ng/mL (0-6.6) 06/09/17 16:41 Troponin I 0.253 ng/mL (< 0.028) H 06/09/17 22:32 - Assessment/Plan 1. Paroxysmal Afib with RVR - Afib with RVR for 3 hrs adn converted back to SR on 06/10/17; Remains in SR with Multaq and Coreg 6.25mg BID, ASA 81mg daily; order TEDs 2. CAD with s/p CABG x 5 on 06/03/17 - Pain in MSI is stable; on Antibiotics managed by PCP 3. HTN - stable with current med 4. DM type 2 - stable; managed by PCP MAR reviewed Review of Systems - Review of Systems Constitutional: reports: no symptoms reported EENTM: reports: no symptoms reported Respiratory: reports: no symptoms reported Cardiac (ROS): reports: no symptoms reported ABD/GI: reports: no symptoms reported : reports: no symptoms reported <Alison Nails - Last Filed: 06/11/17 20:19> Cardiology Progress Note - Objective Vital Signs Temp Pulse Pulse Pulse Resp BP BP 06/11/17 19:02 98.2 F 71 18 06/11/17 17:14 133/59 L 06/11/17 15:45 98.8 F 71 19 06/11/17 12:00 97.8 F 73 18 06/11/17 11:29 73 77 137/64 06/11/17 10:01 130/59 L BP BP BP Pulse Ox 06/11/17 19:02 113/56 L 94 L 06/11/17 17:14 06/11/17 15:45 133/59 L 95 06/11/17 12:00 137/64 95 06/11/17 11:29 140/63 06/11/17 10:01 Weight 192 lb 9.6 oz 06/10/17 06/11/17 06/12/17 06:59 06:59 06:59 Intake Total 1700 1140 Output Total 820 Balance 880 1140 - Labs Result Diagrams: 06/10/17 05:19 06/10/17 05:19 Troponin/CKMB CK-MB (CK-2) 1.0 ng/mL (0-6.6) 06/09/17 16:41 Troponin I 0.253 ng/mL (< 0.028) H 06/09/17 22:32 - Assessment/Plan pt. seen and eval. No complaints tis PM. I agree with the A/P by the STOCKROOM SUPERVISOR. Chest clear,RRR. Prob. home in 1-2 days if no further Afib.
--- NOTE | 2017-06-11 17:09 | PDOC.PN ---
- Subjective Encounter Start Date: 06/11/17 Encounter Start Time: 17:00 Subjective: f/u for SIRS of unclear source. No recurrent fever. No SOB or cough. -: Paroxysmal A-fib noted yesterday for about 2hrs converting back to SR. -: Currently on Multaq and Coreg. No new complaints. - Objective Resuscitation Status: Resuscitation Status FULL:Full Resuscitation MAR Reviewed: Yes Vital Signs & Weight: Vital Signs (12 hours) Temp Pulse Resp BP BP BP Pulse Ox 06/11/17 15:45 98.8 F 71 19 133/59 L 95 06/11/17 12:00 97.8 F 73 18 137/64 95 06/11/17 10:01 130/59 L 06/11/17 08:00 98.5 F 84 18 130/59 L 98 Weight Weight 192 lb 9.6 oz I&O: 06/10/17 06/11/17 06/12/17 06:59 06:59 06:59 Intake Total 1700 780 Output Total 820 Balance 880 780 Result Diagrams: 06/10/17 05:19 06/10/17 05:19 Additional Labs: Accuchecks 06/11/17 06/11/17 06/11/17 16:44 11:34 05:34 POC Glucose 129 H 140 H 122 H 06/10/17 06/10/17 20:38 16:48 POC Glucose 113 H 180 H Microbiology 06/09/17 20:24 Venous blood - Left Arm Blood Culture - Preliminary Specimen has been received and culture in progress. No Growth to date. 06/09/17 20:24 Venous blood - Left Arm Blood Culture - Preliminary NO GROWTH AT 48 HOURS 06/09/17 20:21 Venous blood - Right Arm Blood Culture - Preliminary Specimen has been received and culture in progress. No Growth to date. 06/09/17 20:21 Venous blood - Right Arm Blood Culture - Preliminary NO GROWTH AT 48 HOURS Laboratory Tests 06/07/17 06/09/17 06/09/17 05:28 13:24 13:24 WBC 12.6 H Hgb 12.5 L Sodium 134 L 133 L Magnesium Troponin I TSH 3rd Generation 06/09/17 06/09/17 06/09/17 16:41 20:24 22:32 WBC Hgb Sodium Magnesium Troponin I 0.301 H* 0.272 H 0.253 H TSH 3rd Generation 06/11/17 06/11/17 05:28 05:28 WBC Hgb Sodium Magnesium 1.7 Troponin I TSH 3rd Generation 2.0313 EKG Reviewed by me: Yes (Tele - SR in 70's) Phys Exam - Physical Examination Constitutional: NAD alert, responsive HEENT: PERRLA, oral pharynx no lesions Neck: no nodes, no JVD, supple Respiratory: no wheezing, no rales, no rhonchi, clear to auscultation bilateral Cardiovascular: RRR, no significant murmur, no rub Gastrointestinal: soft, non-tender, no distention, positive bowel sounds Musculoskeletal: no edema, pulses present Neurological: non-focal, normal sensation, moves all 4 limbs Psychiatric: normal affect, A&O x 3 Skin: no rash, normal turgor, cap refill <2 seconds Dx/Plan (1) SIRS (systemic inflammatory response syndrome) Code(s): R65.10 - SIRS OF NON-INFECTIOUS ORIGIN W/O ACUTE ORGAN DYSFUNCTION Status: Acute Comment: Continue Zithromax and Ceftriaxone pending final review of Ucx and Blood cx, continue supportive mgmt, likely d/c abx in 24h (2) Chest pain Code(s): R07.9 - CHEST PAIN, UNSPECIFIED Status: Acute Comment: Non-cardiac CP currently, supportive mgmt, continue mgmt as outlined in #1 (3) CAD (coronary artery disease) Code(s): I25.10 - ATHSCL HEART DISEASE OF [place] CORONARY ARTERY W/O ANG PCTRS Status: Chronic Qualifiers: Coronary Disease-Associated Artery/Lesion type: [place] artery Comment: multivessel disease, s/pCABG 06/03/17, continue ASA, Coreg, d/c Lovenox (4) STEMI (ST elevation myocardial infarction) Status: Acute Comment: Continue on Aspirin, BB, Statin, no acute infarct currently (5) Paroxysmal atrial fibrillation with RVR Code(s): I48.0 - PAROXYSMAL ATRIAL FIBRILLATION Status: Acute Comment: Resolved, continue Multaq and Coreg, no anticoagulation, continue ASA (6) Diabetes mellitus type 2, diet-controlled Code(s): E11.9 - TYPE 2 DIABETES MELLITUS WITHOUT COMPLICATIONS Status: Chronic Comment: A1C - 5.6, ADA diet (7) Hypertension Code(s): I10 - ESSENTIAL (PRIMARY) HYPERTENSION Status: Chronic Qualifiers: Hypertension type: essential hypertension Qualified Code(s): I10 - Essential (primary) hypertension Comment: Resume home BP regimen, serial monitoring - Plan plan discussed w/ family, PT/OT, out of bed/ambulate, DVT proph w/SCDs Stable overall -: Continue ASA, Lipitor and Coreg -: Continue Multaq and Coreg -: OOB/ambulate -: D/C abx in am * Home in am 06/12/17 if no recurrence of A-fib
[2017-06-11] MEDS: HYDROcodone/Acetaminophen 7.5/325 mg Tablet PO PRN (17:18)
[2017-06-11] MEDS: Azithromycin 500 MG in Sodium Chloride 0.9% 250 ML 250 ML IVPB SCH ×2 (21:05→21:24)
[2017-06-11] MEDS: Simvastatin 20 MG TAB PO SCH (21:06)
[2017-06-11] MEDS: Losartan/Hydrochlorothiazide 100 mg/25 mg Tablet PO SCH (21:06)
[2017-06-11] MEDS: cefTRIAXone\\ROCEPHIN 1 GM, Syringe 0.4 ML in Sterile Water 9.6 ML SLOW IVP SCH ×2 (21:10→21:25)
[2017-06-11] MEDS: HYDROcodone/Acetaminophen 5/325 mg Tablet PO PRN (21:22)
--- NOTE | 2017-06-12 06:23 | EKG ---
Test Reason : Blood Pressure : / mmHG Vent. Rate : 080 BPM Atrial Rate : 080 BPM P-R Int : 186 ms QRS Dur : 094 ms QT Int : 382 ms P-R-T Axes : 057 -08 109 degrees QTc Int : 440 ms Normal sinus rhythm Inferior infarct (cited on or before 03-JUN-2017) T wave abnormality, consider lateral ischemia Abnormal ECG When compared with ECG of 09-JUN-2017 17:24, (Unconfirmed) T wave inversion less evident in Anterior leads Confirmed by KAITLIN ULLOA ([id number]) on 06/12/2017 6:14:02 AM Referred By: LAMAR Confirmed By:KAITLIN ULLOA
[2017-06-12] MEDS: Aspirin 325 MG TAB PO SCH (08:30)
[2017-06-12] MEDS: Dronedarone HCl 400 MG TAB PO SCH (08:30)
[2017-06-12] MEDS: HYDROcodone/Acetaminophen 5/325 mg Tablet PO PRN (08:30)
[2017-06-12] MEDS: Docusate 100 MG CAP PO SCH ×2 (08:31→08:37)
[2017-06-12] MEDS: Carvedilol 6.25 MG TAB PO SCH (08:31)
[2017-06-12] MEDS: Finasteride 5 MG TAB PO SCH (08:31)
[2017-06-12] MEDS: Potassium Chloride 10 MEQ TAB PO SCH (08:31)
[2017-06-12] MEDS: Tamsulosin HCl 0.4 MG CAP PO SCH (08:31)
[2017-06-12 10:06] LABS: Hemoglobin 9.5 g/dL (14.0-18.0)
[2017-06-12 12:28] VITALS: BP 108/58; TEMP 97.8
--- NOTE | 2017-06-12 13:13 | DIS ---
DATE OF ADMISSION: 06/09/2017 DATE OF DISCHARGE: 06/12/2017 CONDITION AT THE TIME OF DISCHARGE: Stable. PRIMARY CARE PHYSICIAN: Dr. Parveen Lockwood DISCHARGE DIAGNOSES: 1. Systemic inflammatory response syndrome without any evidence of significant infection. 2. Chest pain, noncardiac, resolved. 3. History of coronary artery disease with recent ST elevation myocardial infarction status post cor onary artery bypass graft x5 on 06/03/2017. 4. Paroxysmal atrial fibrillation with rapid ventricular response, resolved. 5. Diabetes mellitus type 2. 6. Hypertension. DISCHARGE MEDICATIONS: New medications include Multaq 400 mg p.o. b.i.d. and Coreg 6.25 mg p.o. b.i. d. This has been increased from 3.125 mg p.o. b.i.d. Resume following home medications; Zocor 20 mg daily, omeprazole 20 mg daily, Proscar 5 mg daily, aspirin 325 mg daily, losartan/hydrochlorothiazid e 100/25 mg daily, Colbert as needed, Flomax 0.4 mg daily. Please note that the patient has been taken off of his potassium chloride as I do not see a reason fo r him to be on it. He is not hypokalemic and he is not on any diuretic. IN-HOUSE CONSULTATION: Cardiology, Dr. Nails. HISTORY OF PRESENTING ILLNESS: Mr. Ann is a very pleasant 76-year-old male with recent history of coronary artery bypass graft x5 on 06/03/2017 who presented to the emergency room with complaints of chest pain. He also gave history of a heart rate being elevated to 190s at home. He was brought to [facility] where he received aspirin as well as Lovenox as he had mildly elevated tr oponin. EKG done over there was unremarkable. He was admitted to [facility] for further ev aluation. Chest x-ray was consistent with either left lower lobe infiltrate versus atelectasis. He had mildly elevated white cell count of 12,000. He was admitted with a presumptive diagnosis of SIRS and rule out pneumonia and acute coronary syndrome. Please see admission history and physical for f urther details. HOSPITAL COURSE: Cardiology team was consulted and they saw the patient. He was started on empiric antibiotic for possible pneumonia, but he had no evidence to suggest the same so they were eventually discontinued. Cardiology saw the patient and they recommended him starting on Multaq and increasing the Coreg for 1 episode of paroxysmal atrial fibrillation. He was started on both and tolerated both very well. As of this morning, he remains in normal sinus rhythm, afebrile and hemodynamically stable. Cardiology has also cleared him for discharge. All the prescriptions were provided and discharge plan was disc ussed with the patient and his family who verbalized understanding. He was seen and examined prior to discharge. PHYSICAL EXAMINATION: VITAL SIGNS: Temperature 99.7, pulse of 79, blood pressure 144/67, respirations 22, saturating 95% o n room air. GENERAL: No acute distress, sitting up in chair, awake, alert, oriented x3. CHEST: Clear to auscultation bilaterally. CARDIOVASCULAR: Rate and rhythm is regular. LABORATORY EXAMINATION: Hemoglobin is 9.5, which was 9.2 on admission. Serum chemistry; blood sugar of 150. Serum potassium is 3.8 on 06/10/2017. Cardiac enzymes were trended and troponin initially was 0.301, which trended down to 0.253. He will follow up with primary care physician as well as Cardiology in 1-2 weeks' time. Total time spent in the discharge of this patient 32 minutes.
--- NOTE | 2017-07-30 14:26 | EKG ---
Test Reason : Blood Pressure : / mmHG Vent. Rate : 079 BPM Atrial Rate : 079 BPM P-R Int : 152 ms QRS Dur : 094 ms QT Int : 376 ms P-R-T Axes : -02 -12 068 degrees QTc Int : 431 ms Normal sinus rhythm Inferior infarct , age undetermined No STEMI Abnormal ECG Confirmed by DELROY GREER, SAL ([id number]), news videotape editor TANYA PAYTON ([id number]) on 07/30/2017 2:26:33 PM Referred By: Confirmed By:SAL POTTS MD
== END 2017-06-12 12:31 | disposition home or self-care (01) | DRG 281 ==
LOC: ERS 15:37 → 2NO 17:01
PROVIDERS: ADMIT Family Medicine; ATTEND Family Medicine
DX: R07.89 Other chest pain (principal); I21.3 ST elevation (STEMI) myocardial infarction of unspecified site; R65.10 Systemic inflammatory response syndrome (SIRS) of non-infectious origin without acute organ dysfunction; E87.1 Hypo-osmolality and hyponatremia; I48.0 Paroxysmal atrial fibrillation; E11.9 Type 2 diabetes mellitus without complications; I10 Essential (primary) hypertension; I25.10 Atherosclerotic heart disease of native coronary artery without angina pectoris; Z79.82 Long term (current) use of aspirin; Z79.899 Other long term (current) drug therapy; Z95.1 Presence of aortocoronary bypass graft
CPT/HCPCS: 36415; 36416; 80048; 83735; 84443; 85014; 85018; 85025; 93005; 93010; 94760; 96374; A4216; C9113; G8978-GP-CJ; G8979-GP-CJ; G8980-GP-CJ; G8987-GO-CI; G8988-GO-CI; G8989-GO-CI; J0456; J0696; J1650; J1940; J7050

== ENCOUNTER 2017-06-26 15:31 | Outpatient (CLI) | payer MEDICARE | END 2017-06-26 15:32 | disposition home or self-care (01) | LOC: WCC 15:31 | PROVIDERS: ATTEND Family Medicine | DX: T81.89XD Other complications of procedures, not elsewhere classified, subsequent encounter (principal) | CPT/HCPCS: 82962; 97139; 97602; G0463; 36416; 99211 ==

== ENCOUNTER 2017-06-30 14:59 | Outpatient (CLI) | payer MEDICARE ==
[~2017-06-30 14:59] MED LIST changes: -Iopamidol 370 76% 100 ML VIAL ONE; -Iopamidol 370 76% 50 ML VIAL FS ONE; +Sodium Chloride 0.9% 15 ML NEB ONE
== END 2017-06-30 15:00 | disposition home or self-care (01) ==
LOC: WCC 14:59
PROVIDERS: ATTEND Family Medicine
DX: T81.89XD Other complications of procedures, not elsewhere classified, subsequent encounter (principal)
CPT/HCPCS: 97605; A4218

== ENCOUNTER 2017-07-02 08:35 | Outpatient (CLI) | payer MEDICARE ==
[2017-07-02] MEDS ORDERED: Sodium Chloride 0.9% 15 ML NEB ONE (09:00)
== END 2017-07-02 08:36 | disposition home or self-care (01) ==
LOC: WCC 08:35
PROVIDERS: ATTEND Family Medicine
DX: T81.89XD Other complications of procedures, not elsewhere classified, subsequent encounter (principal)
CPT/HCPCS: 97605; A4218

== ENCOUNTER 2017-07-04 10:12 | Outpatient (CLI) | payer MEDICARE ==
[2017-07-08] MEDS ORDERED: Sodium Chloride 0.9% 15 ML NEB ONE (17:43)
== END 2017-07-04 10:13 | disposition home or self-care (01) ==
LOC: WCC 10:12
PROVIDERS: ATTEND Family Medicine
DX: T81.89XD Other complications of procedures, not elsewhere classified, subsequent encounter (principal)
CPT/HCPCS: 97605

== ENCOUNTER 2017-07-04 11:45 | Observation (INO) | payer MEDICARE ==
[2017-07-04 12:08] LABS: #Eosinphils 0.1 thou/uL (0.0-0.7); #Lymphocytes 0.7 thou/uL (1.20-3.40); #Monocytes 0.4 thou/uL (0.11-0.59); %Basophils 0.2 % (0.0-1.0); %Eosinophils 0.8 % (0.0-10.0); %Lymphocytes 9.7 % (21.0-51.0); %Monocytes 4.9 % (0.0-10.0); %Neutrophils 84.4 % (42.0-75.0); Mean Corpuscular HGB CONC 31.9 g/dL (32.0-36.0); Mean Corpuscular Hemoglobin 28.6 pg (27.0-31.0); Mean Corpuscular Volume 89.4 fl (80.0-94.0); Mean Platelet Volume 6.2 fL (7.4-10.4); Platelet Count 629 thou/uL (130-400); Red Blood Cell (RBC) Count 4.54 mill/uL (4.70-6.10); White Blood Cell (WBC) Count 7.1 thou/uL (4.8-10.8)
--- NOTE | 2017-07-04 12:18 | RAD ---
PORTABLE UPRIGHT FRONTAL CHEST RADIOGRAPH: 07/04/2017 HISTORY: Chest pain. COMPARISON: 06/24/2017 FINDINGS: Mild increased linear interstitial density noted. Midline sternotomy wires and mediastinal clips wer e present. There was no pneumothorax, pleural fluid, lobar consolidation, or alveolar edema. IMPRESSION: No acute findings. POS: [facility]
[2017-07-04 12:33] LABS: ALT (SGPT) 15 U/L (8-55); AST (SGOT) 21 U/L (5-34); Albumin 4.1 g/dL (3.4-4.8); Alkaline Phosphatase 121 U/L (40-150); Anion Gap 14 mmol/L (10-20); BUN (Urea Nitrogen) 15 mg/dL (8.4-25.7); Bilirubin, Total 0.6 mg/dL (0.2-1.2); CK (CPK) 21 U/L (30-200); Calc. Creatinine Clearance 0 mL/min (70-130); Calcium 9.8 mg/dL (7.8-10.44); Carbon Dioxide 28 mmol/L (23-31); Chloride 98 mmol/L (98-107); Estimated GFR-MDRD 75; Globulin 4.6 g/dL (2.4-3.5); Glucose 113 mg/dL (83-110); Potassium 3.9 mmol/L (3.5-5.1); Protein, Total 8.7 g/dL (5.8-8.1); Sodium 136 mmol/L (136-145)
[2017-07-04 12:43] LABS: CKMB 1.2 ng/mL (0-6.6); Troponin I Less than 0.010 ng/mL (< 0.028)
[2017-07-04] MEDS ORDERED: Nitroglycerin 2% Ointment 1 INCH/1 GM Packet ONE ×2 (12:47→12:56)
[2017-07-04] MEDS ORDERED: Adacel (T-DAP) 0.5 ML VIAL ONE (14:06)
[2017-07-04] MEDS ORDERED: Senokot 8.6 MG TAB PO PRN (15:43)
[2017-07-04] MEDS ORDERED: HYDROcodone/Acetaminophen 5/325 mg Tablet PO PRN (15:43)
[2017-07-04] MEDS ORDERED: Acetaminophen 325 MG TAB PO PRN (15:43)
[2017-07-04] MEDS ORDERED: Nitroglycerin 0.4 MG TAB (25 Tab Bottle) PO PRN (15:43)
[2017-07-04 15:45] VITALS: BMI 23.6
[2017-07-04] MEDS ORDERED: oxyCODONE/Acetaminophen 5 mg/325 mg Tablet PO PRN (16:08)
[2017-07-04] MEDS ORDERED: hydrALAZINE 20 MG/ML VIAL SLOW IVP PRN (16:33)
[2017-07-04] MEDS ORDERED: Amlodipine 5 MG TAB PO SCH (16:45)
[2017-07-04 16:53] LABS: Troponin I 0.028 ng/mL (< 0.028)
--- NOTE | 2017-07-04 17:05 | HP ---
DATE OF ADMISSION: 07/04/2017 CHIEF COMPLAINT: Chest pain. HISTORY OF PRESENT ILLNESS: This is a 76-year-old white male with a recent history of cardiac bypass that was done less than a month ago by Dr. Jesus. Patient was discharged home and 3 weeks lat er he was found to have cellulitis over the surgical scar on the chest which was oozing, serosanguine ous fluid which was cultured to be positive for gram negative infection which was sensitive to ciprof loxacin. The patient was seen by Dr. Jesus as outpatient and was started on wound VAC at that time and patient has been following up with the wound VAC since then. He has been on Cipro for the p ast 5 days and was advised to take for 1 month. Today at the [facility] at 10:00 a.m., he develope d a sudden onset of chest pain which was radiating to the right precordium, not this is nausea or vom iting. The pain lasted for almost an hour and when he decided to come to the ER, patient also had el evated blood pressures at that time of 190 systolic. He denies having any diarrhea or constipation. He denies having any vomiting. The pain currently was gone. He had an EKG in the ER which showed e vidence of T-wave inversions in V2, V3 and V4. Patient's cardiac enzymes were normal. Otherwise, all other labs were normal. He had elevated BNP, but otherwise his chest x-ray was unremarkable. As patient was seen on the floor, he was alert and oriented, did not have any chest pain at this time . No nausea, no vomiting. His wound VAC is intact and no evidence of any erythema was noted. PAST MEDICAL HISTORY: 1. Hypertension. 2. Diabetes mellitus. 3. Coronary artery bypass, 3-vessel bypass. PAST SURGICAL HISTORY: 1. CABG bypass three-vessel disease. 2. Cardiac catheterization in 1989. SOCIAL HISTORY: The patient is not a known alcoholic. No history of alcohol, no history of illicit drug use. No history of smoking. FAMILY HISTORY: No significant family history of coronary artery disease. Family history has been t horoughly reviewed. ALLERGIES: No known drug allergies. HOME MEDICATIONS: Omeprazole 20 mg p.o. daily, Coreg 3.125 mg p.o. b.i.d., hydrocodone, aspirin 325 mg p.o. daily, finasteride 5 mg p.o. daily, losartan/hydrochlorothiazide 1 tablet p.o. daily, potassi um 10 mEq p.o. daily, simvastatin 20 mg p.o. daily, Tamsulosin 0.4 mg p.o. daily and ciprofloxacin 50 0 mg p.o. b.i.d. REVIEW OF SYSTEMS: All 12 systems are reviewed with the patient thoroughly and found to be negative at this time. The following complete review of systems was negative, unless otherwise mentioned in t he HPI or below: Constitutional: Weight loss or gain, sense of well-being, ability to conduct usual activities, exerc ise tolerance. Skin/Breast: Rash, itching, changes in hair growth or loss, nail changes, breast lumps, tenderness, swelling, nipple discharge. Eyes: Vision, double vision, tearing, blind spots, pain. ENT/Mouth: Headaches (location, time of onset, duration, precipitating factors), vertigo, lightheade dness, injury. Vision, double vision, tearing, blind spots, pain, nose bleeding, colds, obstruction, discharge, dental difficulties, gingival bleeding, dentures, neck stiffness, pain, tenderness, masses in thyroid or other areas Cardiovascular: Precordial pain, substernal distress, palpitations, syncope, dyspnea on exertion, or thopnea, nocturnal paroxysmal dyspnea, edema, cyanosis, hypertension, heart murmurs, varicosities, ph lebitis, claudication. Respiratory: Pain, shortness of breath, wheezing, stridor, cough, hemoptysis, fever or night sweats Gastrointestinal: Poor appetite, dysphagia, indigestion, abdominal pain, heartburn, eructation, naus ea, vomiting, hematemesis, jaundice, constipation, or diarrhea, abnormal stools (jasen-colored, tarry, bloody, greasy, foul smelling), flatulence, hemorrhoids, recent changes in bowel habits. Genitourinary: Urgency, frequency, dysuria, nocturia, hematuria, polyuria, oliguria, unusual (or demetrius nge in) color of urine, stones, hesitancy, change in size of stream, dribbling, acute retention or in continence, libido, potency. Musculoskeletal: Pain, swelling, redness or heat of muscles or joints, limitation, of motion, muscul ar weakness, atrophy, cramps. Neurologic/Psychiatric: Convulsions, paralyses, tremor, incoordination, paraesthesias, difficulties with memory of speech, sensory or motor disturbances, or muscular coordination (ataxia, tremor), emot ional problems, anxiety, depression, previous psychiatric care, unusual perceptions, hallucinations. Allergy/Immunologic: Skin rash, anemia, bleeding tendency, polydipsia, polyuria, intolerance to heat or cold. PHYSICAL EXAMINATION: VITAL SIGNS: Blood pressure is 174/77, heart rate is 74, respiratory rate is 18, saturation 98%. GENERAL: The patient is moderately built and moderately nourished. Does not appears to be any acute distress at this time. He is an alert and oriented x3. HEENT: Atraumatic, normocephalic, PERRLA, Extraocular muscles were intact. Oral mucosa is pink and moist. CARDIOVASCULAR: S1, S2 normal. No murmurs, rubs or gallops. LUNGS: Bilateral air entry was equal. No wheezing, no crackles. ABDOMEN: Soft, nontender, no guarding, no rebound tenderness. Bowel sounds normal. MUSCULOSKELETAL: No calf tenderness, no pedal edema. No joint redness, no joint swelling. SKIN: No cyanosis, no erythema, no rash, no pallor. CENTRAL NERVOUS SYSTEM: Cranial nerve examination II-XII intact. No focal deficits were noted. PSYCHIATRIC: No signs of suicidal sedation. No signs of whit were noted. LABORATORY DATA: WBC 7.1, hemoglobin is 13.0, hematocrit is 40.6, and platelets 629. Sodium 136, potassium 3.9, chloride is 98, bicarbonate is 28, BUN is 15, creatinine 0.97, blood sugar is 113. BNP is 447. ASSESSMENT AND PLAN: 1. Acute chest pain, rule out myocardial infarction. 2. Uncontrolled hypertension 3. Hyperlipidemia. 4. History of congestive heart failure. 5. Benign prostatic hypertrophy. PLAN: 1. Plan is to closely monitor this patient. Patient is a known patient of Dr. Jesus. We will consult him during this admission as he is a cardiothoracic surgeon who treated this patient and has been closely following up with him. The patient has wound VAC on his chest which is unremarkable an d patient is on p.o. antibiotics, ciprofloxacin with culture sensitive to it. We will continue with this antibiotic at this time. Patient will be closely monitored for his history of coronary artery d isease and we will consult Cardiology also to decide on the EKG finding if the patient would need a n uclear stress test or 2D echo in the morning. We will closely monitor his serial troponins. 2. Patient has elevated blood pressures and we will optimize his blood pressure medications. The matilde emanuel is on losartan and hydrochlorothiazide for blood pressures and also on Coreg 6.25 mg. At this time, we will start the patient on Norvasc for better control of the blood pressures. 3. Hyperlipidemia. We will continue the patient on simvastatin. Patient has history of benign pros tatic hypertrophy. We will continue the patient on tamsulosin 0.4 mg p.o. daily. 4. Patient has history of coronary artery disease with coronary artery bypass graft. We will contin ue the patient on aspirin and beta blockers. 5. Deep venous thrombosis prophylaxis, on Lovenox. I spent 70 minutes with this patient.
[2017-07-04] MEDS: Dronedarone HCl 400 MG TAB PO SCH (18:13)
[2017-07-04] MEDS: Carvedilol 6.25 MG TAB PO SCH (18:14)
[2017-07-04] MEDS: Ciprofloxacin 500 MG TAB PO SCH (20:01)
--- NOTE | 2017-07-04 20:11 | CON ---
DATE OF CONSULTATION: 07/04/2017 REASON FOR CONSULTATION: Chest pain. PRIMARY WASH AND GREASER: Samantha Nails M.D. HISTORY OF PRESENT ILLNESS: Mr. Ann is a very pleasant 76-year-old white gentleman who comes to [facility] for chest pain. He had multivessel disease diagnosed about a month ago and underwent [place] artery bypass grafting x5 by Dr. Jesus in early June. He had a complex postop course as he has had now an infection on his sternal wound and is having a wound VAC placed there. He had a re admission with chest pain and atrial fibrillation which he has been on Coreg for and is doing better. He comes in today as his wound VAC was turned on and he felt sudden onset of chest pain going to [facility] right side of his chest. He came to the ER because of the pain and an EKG was different. He had T -wave changes on the lateral leads, so he was admitted for further evaluation. Cardiology was consul mau for this. PAST MEDICAL HISTORY: 1. Hypertension. 2. Type 2 diabetes. 3. Coronary artery disease, status post bypass grafting as above. PAST SURGICAL HISTORY: 1. CABG as above. 2. Cardiac catheterization. SOCIAL HISTORY: No alcohol, tobacco or drugs. FAMILY HISTORY: Noncontributory. OUTPATIENT MEDICATIONS: 1. Omeprazole 20 mg a day. 2. Coreg 3.125 mg b.i.d. 3. Hydrocodone p.r.n. 4. Oxycodone p.r.n. 5. Aspirin 325 a day. 6. Finasteride 5 mg a day. 7. Lisinopril/hydrochlorothiazide daily. 8. Potassium 10 mEq a day. 9. Simvastatin 20 mg at bedtime. 10. Tamsulosin. 11. Ciprofloxacin 500 mg b.i.d. ALLERGIES: No known drug allergies. REVIEW OF SYSTEMS: A 12-point review of systems was done and is negative unless stated in history of present illness. PHYSICAL EXAMINATION: VITAL SIGNS: Temperature 97.9, pulse 74, respiratory rate 16, sat 98% on room air, blood pressure 17 4/77. GENERAL: Awake, alert, oriented x3, in no distress. HEENT: Normocephalic, atraumatic. NECK: Supple. LUNGS: Clear. CARDIOVASCULAR: S1, S2. No S3, S4. There is a wound VAC in the mid sternal area with minimal eryth ranjit, nontender to palpation. ABDOMEN: Soft, positive bowel sounds. EXTREMITIES: No edema. SKIN: Warm and dry. LABORATORY WORK: Reviewed. CBC is unremarkable except for hemoglobin of 13, platelets of 629. Chem istry was unremarkable. Troponin is negative x2. BNP was 447. Chest x-ray showed no acute findings. ASSESSMENT AND PLAN: 1. Chest pain: Most likely related to the wound VAC. We will get one more set of troponins and if these remain negative, this is likely just related to wound infection. Otherwise, he should be able to be discharged home tomorrow morning if he rules out with negative enzymes. 2. Sternal wound infection. Continue wound VAC. Continue antibiotics. CT surgeon aboard. 3. Coronary artery disease: Stable at this time, medications are adequate. 4. Postoperative atrial fibrillation: Currently in sinus rhythm. Continue beta stephanie. Thank you for letting us to participate in the care of your patient. We will follow.
[2017-07-04] MEDS ORDERED: Losartan/Hydrochlorothiazide 100 mg/25 mg Tablet PO SCH (21:00)
[2017-07-04] MEDS ORDERED: Simvastatin 20 MG TAB PO SCH (21:00)
[2017-07-04] MEDS ORDERED: Carvedilol 3.125 MG TAB PO SCH (21:00)
[2017-07-05] MEDS: oxyCODONE/Acetaminophen 5 mg/325 mg Tablet PO PRN ×2 (00:17→05:44)
[2017-07-05 04:35] LABS: #Eosinphils 0.1 thou/uL (0.0-0.7); #Lymphocytes 1.4 thou/uL (1.20-3.40); #Monocytes 0.5 thou/uL (0.11-0.59); #Neutrophils 4.3 thou/uL (1.40-6.50); %Basophils 0.3 % (0.0-1.0); %Eosinophils 1.6 % (0.0-10.0); %Lymphocytes 21.7 % (21.0-51.0); %Monocytes 8.6 % (0.0-10.0); %Neutrophils 67.9 % (42.0-75.0); Hemoglobin 10.6 g/dL (14.0-18.0); Mean Corpuscular HGB CONC 31.7 g/dL (32.0-36.0); Mean Corpuscular Hemoglobin 28.2 pg (27.0-31.0); Mean Corpuscular Volume 89.1 fl (80.0-94.0); Mean Platelet Volume 6.1 fL (7.4-10.4); Platelet Count 525 thou/uL (130-400); Red Blood Cell (RBC) Count 3.74 mill/uL (4.70-6.10); White Blood Cell (WBC) Count 6.3 thou/uL (4.8-10.8)
[2017-07-05 04:49] LABS: Anion Gap 11 mmol/L (10-20); BUN (Urea Nitrogen) 13 mg/dL (8.4-25.7); Calc. Creatinine Clearance 91 mL/min (70-130); Calcium 8.8 mg/dL (7.8-10.44); Carbon Dioxide 28 mmol/L (23-31); Cardiac Risk 3.6 (Less than 4.5); Chloride 100 mmol/L (98-107); Cholesterol 89 mg/dl (< 200 Desired); Estimated GFR-MDRD Greater than 90; Glucose 108 mg/dL (83-110); HDL Cholesterol 25 mg/dL (>60 Neg Risk); LDL Cholesterol, Calculated 46 mg/dL; Potassium 3.5 mmol/L (3.5-5.1); Sodium 135 mmol/L (136-145); Triglycerides 89 mg/dL (Less than 150)
[2017-07-05] MEDS: Ciprofloxacin 500 MG TAB PO SCH (05:44)
[2017-07-05] MEDS: Dronedarone HCl 400 MG TAB PO SCH (08:13)
[2017-07-05] MEDS: Carvedilol 6.25 MG TAB PO SCH (08:14)
[2017-07-05] MEDS ORDERED: Amlodipine 5 MG TAB PO SCH (09:00)
[2017-07-05] MEDS ORDERED: Tamsulosin HCl 0.4 MG CAP PO SCH (09:00)
[2017-07-05] MEDS ORDERED: Enoxaparin Sodium 40 MG/0.4 ML SYRINGE SC SCH (09:00)
[2017-07-05] MEDS ORDERED: Finasteride 5 MG TAB PO SCH (09:00)
[2017-07-05 11:27] LABS: Troponin I 0.014 ng/mL (< 0.028)
[2017-07-05 12:04] VITALS: BP 164/71; TEMP 98.3
--- NOTE | 2017-07-05 14:07 | PDOC.CTH ---
Cardiology Progress Note - Subjective He is doing well. He denies any chest pain. - Objective Vital Signs Temp Pulse Pulse Pulse Pulse Resp BP 07/05/17 11:50 98.3 F 72 20 07/05/17 09:25 76 88 78 07/05/17 08:13 69 07/05/17 07:52 98.6 F 69 16 07/05/17 07:37 98.6 F 69 16 07/05/17 05:42 16 07/05/17 03:52 97.9 F 79 18 186/87 H BP BP BP BP Pulse Ox Pulse Ox Pulse Ox 07/05/17 11:50 164/71 H 96 07/05/17 09:25 148/70 H 181/72 H 177/78 H 95 97 07/05/17 08:13 07/05/17 07:52 07/05/17 07:37 146/70 H 94 L 07/05/17 05:42 162/70 H 07/05/17 03:52 93 L Pulse Ox 07/05/17 11:50 07/05/17 09:25 97 07/05/17 08:13 07/05/17 07:52 07/05/17 07:37 07/05/17 05:42 07/05/17 03:52 07/04/17 07/05/17 07/06/17 06:59 06:59 06:59 Intake Total 970 Output Total 850 Balance 120 - Physical Examination General/Neuro: alert & oriented x3, NAD Neck: no JVD present Lungs: CTA, unlabored respirations Heart: RRR Abdomen: NT/ND Extremities: other: (no edema) - Telemetry Telemetry Rhythm: NSR - Labs Result Diagrams: 07/05/17 04:05 07/05/17 04:05 Troponin/CKMB CK-MB (CK-2) 1.2 ng/mL (0-6.6) 07/04/17 12:02 Troponin I 0.014 ng/mL (< 0.028) 07/05/17 10:31 - Assessment/Plan 1. S/P CABG 2. Chest wound infection. 3. Chest pain from wound vac and post ABG 4. CAD stable, no ACS. PLAN: - Continue current meds. - May discharge home today. - Follow up in 1 month. - Will up titrate BP meds as outpatient once he keeps a log of his BP's.
--- NOTE | 2017-07-06 08:09 | DIS ---
DATE OF DISCHARGE: 07/05/2017 DISCHARGE DISPOSITION: Home. FOLLOWUP: Follow up with primary care physician, Dr. Lockwood, in 1 week. Follow up with cardiovascu lar surgeon, Dr. Jesus, in 1 week. Outpatient followup with Dr. Nails. The patient was seen and examined on the day of discharge. Denies any new complaints, no chest pain or shortness of breath. SIGNIFICANT LABORATORIES: Maximum troponin 0.030. Chest x-ray was negative for infiltrate. Echocar diogram showed left ventricular ejection fraction of 60%-65% with grade 2/3 diastolic dysfunction wit h [id number] aortic valve stenosis. BRIEF HOSPITAL COURSE: The patient is a 76-year-old white male with recent coronary artery bypass [facility], presented to the hospital with chest discomfort. Please refer to the history and physical maryellen ed 07/04/2017 for further details. The patient was admitted to the hospital with a diagnosis of chest discomfort, rule out acute coronar y syndrome. He was found to have elevated blood pressure on admission. The patient was seen by Card lennyogkailyn, Dr. Lagos. Initially amlodipine was added to his regimen that was discontinued per Cardiolo gy. Cardiology recommended to continue all of his home medications. Echocardiogram was repeated as discussed above. The patient has been cleared by Cardiology for discharge. Follow up with Dr. Nails in 2-4 weeks is recommended. He will follow up with outpatient wound care for chest wound infection. FINAL DIAGNOSES: 1. Chest discomfort, acute coronary syndrome ruled out. 2. Indeterminate troponins, probably secondary to elevated blood pressure. 3. Hypertension. 4. Hyperlipidemia. 5. Benign prostatic hypertrophy. 6. Chest wound infection. The patient currently has wound VAC. Plan of care was discussed with the patient in detail. He stated understanding.
== END 2017-07-05 14:30 | disposition home or self-care (01) ==
LOC: ERS 11:45 → 2SW 15:39
PROVIDERS: ADMIT Family Medicine; ATTEND Family Medicine
DX: R07.89 Other chest pain (principal); R79.89 Other specified abnormal findings of blood chemistry; I10 Essential (primary) hypertension; E78.5 Hyperlipidemia, unspecified; N40.0 Benign prostatic hyperplasia without lower urinary tract symptoms; E11.9 Type 2 diabetes mellitus without complications; I25.10 Atherosclerotic heart disease of native coronary artery without angina pectoris; T81.4XXA Infection following a procedure, initial encounter; L03.313 Cellulitis of chest wall; Z79.2 Long term (current) use of antibiotics; Z79.899 Other long term (current) drug therapy; Z95.1 Presence of aortocoronary bypass graft; Z98.890 Other specified postprocedural states
CPT/HCPCS: 71045; 80048; 80053; 80061; 82550; 82553; 83880; 84484 ×3; 85025 ×2; 90715; 93005; 93306; 94760 ×2; 96372; 97139; 99285; G0378; G8978; G8979; G8980; 36415; J1650

== ENCOUNTER 2017-07-07 14:33 | Outpatient (CLI) | payer MEDICARE ==
[~2017-07-07 14:33] MED LIST changes: +Lidocaine 2% Jelly 5 ML TUBE ONE
== END 2017-07-07 14:34 | disposition home or self-care (01) ==
LOC: WCC 14:33
PROVIDERS: ATTEND Family Medicine
DX: T81.89XD Other complications of procedures, not elsewhere classified, subsequent encounter (principal)
CPT/HCPCS: 97605; A4218

== ENCOUNTER 2017-07-14 14:24 | Outpatient (CLI) | payer MEDICARE | END 2017-07-14 14:25 | disposition home or self-care (01) | LOC: WCC 14:24 | PROVIDERS: ATTEND Family Medicine | DX: T81.89XD Other complications of procedures, not elsewhere classified, subsequent encounter (principal) ==

== ENCOUNTER 2017-07-16 08:50 | Outpatient (CLI) | payer MEDICARE ==
--- NOTE | 2017-07-16 11:42 | HP ---
DATE OF SERVICE: 07/16/2017 HISTORY OF PRESENT ILLNESS: Mr. Lance Ann is a very pleasant 76-year-old gentleman accompanied by his who presents to the Wound Center for evaluation of a sternal wound subsequent to coronary a rtery bypass grafting. The patient states that after undergoing coronary artery bypass grafting x5, he developed cellulitis of the anterior chest 3 weeks later. He states that serosanguineous drainage was associated with his wound and cultures revealed the growth of a gram negative organism sensitive to ciprofloxacin. At this time, the patient was placed on negative pressure therapy for his wound b y Dr. Jesus. The patient was also referred to the Wound Center for assistance with dressing ch anges of the wound VAC. The patient in addition was placed on ciprofloxacin for 1 month. PAST MEDICAL HISTORY: 1. Hypertension. 2. Diabetes mellitus. 3. Coronary artery disease. 4. History of paroxysmal atrial fibrillation with rapid ventricular response. 5. Benign prostatic hypertrophy. PAST SURGICAL HISTORY: Coronary artery bypass grafting x5. MEDICATIONS: 1. Aspirin 81 mg. 2. Coreg. 3. Multaq. 4. Hyzaar. 5. Prilosec. 6. Zocor. 7. Flomax. 8. Ciprofloxacin. 9. Zyrtec. ALLERGIES: No known diagnosed allergies. SOCIAL HISTORY: Negative for current tobacco or ETOH use. FAMILY HISTORY: Negative for diabetes mellitus or coronary artery disease. PHYSICAL EXAMINATION: VITAL SIGNS: Temperature 98.0, pulse 84, respirations 18, blood pressure 172/88, Accu-Chek 109. GENERAL: A 76-year-old gentleman lying on table in examination room in no acute distress. HEENT: Normocephalic, atraumatic. NECK: No nuchal rigidity. CHEST: Clear to auscultation. A nonhealing surgical wound of the anterior chest is present which me asures approximately 10.5 x 0.4 cm. Granulation tissue is present within the wound margins. No puru lent drainage is associated with the wound. No erythema of the skin surrounding the wound is present . No maceration of the skin of the periwound is noted. CARDIAC: Regular rate and rhythm. ABDOMEN: Soft. EXTREMITIES: No clubbing or cyanosis. NEUROLOGIC: Grossly nonfocal. ASSESSMENT AND PLAN: Nonhealing surgical wound subsequent to coronary artery bypass grafting x5. Ne gative pressure therapy will be discontinued today. Dressing changes of Xeroform gauze will be initi ated. These dressing changes are to be performed on a daily basis after cleansing and irrigation wit h the assistance of the patient's . ABDs secured with tape will be utilized as secondary dressin gs. The patient has a followup appointment with Dr. Jesus in 1 week. I will see Mr. Seth valdivia in in two weeks. The patient has been instructed to continue ciprofloxacin as previously prescribed.
== END 2017-07-16 08:51 | disposition home or self-care (01) ==
LOC: WCC 08:50
PROVIDERS: ATTEND Family Medicine
DX: T81.89XD Other complications of procedures, not elsewhere classified, subsequent encounter (principal)
CPT/HCPCS: 97602; 99203; G0463

== ENCOUNTER 2017-07-30 09:36 | Outpatient (CLI) | payer MEDICARE ==
--- NOTE | 2017-07-30 11:48 | PRG ---
DATE OF SERVICE: 07/30/2017 HISTORY: Mr. Lance Ann is a very pleasant 76-year-old gentleman, accompanied by his , who pre sents to the Wound Center for evaluation of a sternal wound subsequent to coronary artery bypass ana ting. The patient previously stated that after undergoing coronary artery bypass grafting x5, he dev eloped cellulitis of the anterior chest 3 weeks later. He stated that serosanguineous drainage was a ssociated with his wound and cultures revealed the growth of a gram-negative organism sensitive to ci profloxacin. At this time, the patient was placed on negative pressure therapy for his wound by Dr. Jesus. The patient was also referred to the Wound Center for assistance with dressing changes of the wound VAC. The patient in addition was placed on ciprofloxacin for 1 month. The patient has completed a course of negative pressure therapy. The patient states he is cleansing his wound with s oap and water as per Dr. Jesus. PHYSICAL EXAMINATION: VITAL SIGNS: Temperature 97.7, pulse 67, respirations 19, blood pressure 165/77. CHEST: The nonhealing surgical wound of the anterior chest has healed completely. ASSESSMENT AND PLAN: Nonhealing surgical wound subsequent to coronary artery bypass grafting x5. As stated above, the wound has completely healed. Mr. Ann will be discharged from clinic today with followup on a p.r.n. basis.
== END 2017-07-30 09:37 | disposition home or self-care (01) ==
LOC: WCC 09:36
PROVIDERS: ATTEND Family Medicine
DX: T81.89XD Other complications of procedures, not elsewhere classified, subsequent encounter (principal)
CPT/HCPCS: 97602

== ENCOUNTER 2017-12-05 08:12 | Day surgery (SDC) | payer MEDICARE ==
[2017-12-04 14:57] VITALS: BMI 24.4
[2017-12-05 08:51] LABS: #Eosinphils 0.1 thou/uL (0.0-0.7); #Lymphocytes 1.3 thou/uL (1.20-3.40); #Monocytes 0.6 thou/uL (0.11-0.59); #Neutrophils 4.9 thou/uL (1.40-6.50); %Basophils 0.5 % (0.0-1.0); %Eosinophils 1.3 % (0.0-10.0); %Lymphocytes 18.5 % (21.0-51.0); %Monocytes 8.6 % (0.0-10.0); %Neutrophils 71.1 % (42.0-75.0); Hemoglobin 12.8 g/dL (14.0-18.0); Mean Corpuscular HGB CONC 31.3 g/dL (32.0-36.0); Mean Corpuscular Hemoglobin 25.8 pg (27.0-31.0); Mean Corpuscular Volume 82.3 fL (78.0-98.0); Mean Platelet Volume 7.8 fL (7.4-10.4); Platelet Count 220 thou/uL (130-400); RBC Distribution Width 14.7 % (11.5-14.5); Red Blood Cell (RBC) Count 4.96 mill/uL (4.70-6.10); White Blood Cell (WBC) Count 6.9 thou/uL (4.8-10.8)
[2017-12-05 09:10] LABS: Anion Gap 12 mmol/L (10-20); BUN (Urea Nitrogen) 15 mg/dL (8.4-25.7); Calc. Creatinine Clearance 81 mL/min (70-130); Calcium 9.5 mg/dL (7.8-10.44); Carbon Dioxide 27 mmol/L (23-31); Chloride 103 mmol/L (98-107); Estimated GFR-MDRD 85; Glucose 114 mg/dL (83-110); Potassium 3.7 mmol/L (3.5-5.1); Sodium 138 mmol/L (136-145)
--- NOTE | 2017-12-05 09:29 | RAD ---
PA AND LATERAL CHEST RADIOGRAPH: Date: 12-05-17 History: Pre-operative evaluation. Chest infection. Comparison: 07-04-17 FINDINGS: Post-surgical changes related to median sternotomy and likely CABG are again present. The cardiac rodrick houette and pulmonary vasculature are within normal limits. Mild elevation of the right hemidiaphragm , similar to the prior exam. There is mild atelectasis at the left lung base. Lungs are otherwise obdulia ar. Vascular calcification seen in the thoracic aorta. Degenerative changes noted in the spine. There has been no significant interval change from the prior exam. IMPRESSION: No acute cardiopulmonary process. POS: [facility]
[2017-12-05] MEDS ORDERED: CEFAZOLIN/Water 2 GM/20 ML SYRINGE ONE (09:41)
[2017-12-05] MEDS ORDERED: PROPOFOL 200 MG/20 ML VIAL ONE (10:20)
[2017-12-05] MEDS ORDERED: Lidocaine 1% PF 5 ML VIAL ONE (10:20)
[2017-12-05] MEDS ORDERED: Ondansetron HCl/PF 4 MG/2 ML Vial ONE (10:20)
[2017-12-05] MEDS ORDERED: ePHEDrine/0.9% NaCl/PF SYRINGE 50 mg/10 ml ONE (10:20)
[2017-12-05] MEDS ORDERED: hydrALAZINE 20 MG/ML VIAL ONE (10:32)
[2017-12-05] MEDS ORDERED: Fentanyl 100 MCG/2 ML VIAL ONE (10:48)
--- NOTE | 2017-12-05 12:41 | OP ---
DATE OF PROCEDURE: 12/05/2017 PROCEDURE PERFORMED: A sternal wire removal and curetting of costal cartilage. 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 POSTOPERATIVE DIAGNOSIS: Sternal wire granuloma status post coronary artery bypass grafting. SURGEON: Dr. Salo Jesus ANESTHESIA: General LMA. INDICATIONS: The patient is a 77-year-old man who several months ago had a superficial sternal wound infection following coronary artery bypass grafting that appeared to heal promptly, but he has had r ecurring problems with blistering and drainage at the epigastric portion of his incision. He has rec ently had some cellulitic area there that . He is now taken to the operating room for irrig ation and debridement and removal of the sternal wire that is presumed to be the nidus of recurring i nfections. FINDINGS: Sinus tract leading down to costal cartilage at the lower left sternal margin with a alexandra al wire at that level. NARRATIVE REPORT: After informed consent was obtained, the patient was taken to the operating room a nd placed in supine position on the operating table. After induction of general anesthesia, the david ent's chest was prepped and draped in sterile fashion. An incision was made sharply through the thin nicole out area that encompassed the area that has been draining purulent material. The wound was probe d and a sinus tract was identified. Some of the purulent material and fibrinous exudate was sampled and sent for culture. The electrocautery was used to cut down on the sinus tract and a knife was use d to extend the incision superiorly and inferiorly to facilitate adequate exposure. The sinus tract was curetted and in the course of debriding out fragmented cartilage the twist of sternal wire at rubin t level was exposed. The wire was grasped, cut and removed. The wound was further irrigated, furthe r debrided and then irrigated with 3 liters of sterile irrigant using a Pulsavac device. The wound w as then packed and the patient taken back to day surgery in stable condition.
--- NOTE | 2017-12-12 11:51 | PQF ---
[facility] POST DISCHARGE CLINICAL DOCUMENTATION IMPROVEMENT CLARIFICATION FORM l Todays Date: 12/10/17 l Patients Name ZANE DELACRUZ l l Admit Date 12/05/17 l Disch Date 12/05/17 Engine Dynamometer Tester Name Santiago Woo Email: [email or web address] Cell: [phone] Present Clinical Indicators - Signs / Symptoms Results and Location in Medical Record [ ] Documentation of: [ ] [ ] Documentation of: [ ] [ ] Documentation of: [ ] [ ] Documentation of: [ ] [ ] Risks [ ] [ ] [ ] Treatment [x ] DEBRIDEMENT SINUS TRACT AND STERNAL WIRE GRANULOMA 2 X 5 cmQUERY FOR SIZE OF DEBRIDED AREA IN SQ. CM [ ] [ ] To be completed by Physician: DR. REDD BURGESS The documentation in this patients record requires clarification to ensure coding compliance and accuracy. Check the appropriate box and include in your discharge summary. [ ] [ ] [ ] [ ] Please check this box if this does not apply to this patient [ ] Unable to determine [ ] Other diagnosis: Review the following information and exercise your independent professional judgment in responding to the clarification. Based upon the clinical findings, risk factors, and treatment, please clarify if you are treating one of the above probable or suspected diagnoses. Physician Signature: Date Time MTDD
== END 2017-12-05 12:40 | disposition home or self-care (01) ==
LOC: SDC 08:12
PROVIDERS: ATTEND Thoracic Surgery (Cardiothoracic Vascular Surgery)
PROC: 0PP004Z Removal of Internal Fixation Device from Sternum, Open Approach (ICD-10-PCS; principal; 2017-12-05)
PROC: 0PB00ZZ Excision of Sternum, Open Approach (ICD-10-PCS; 2017-12-05)
DX: T85.79XA Infection and inflammatory reaction due to other internal prosthetic devices, implants and grafts, initial encounter (principal); M60.28 Foreign body granuloma of soft tissue, not elsewhere classified, other site; I25.10 Atherosclerotic heart disease of native coronary artery without angina pectoris; I25.2 Old myocardial infarction; I10 Essential (primary) hypertension; E11.9 Type 2 diabetes mellitus without complications; N40.0 Benign prostatic hyperplasia without lower urinary tract symptoms; Z79.82 Long term (current) use of aspirin; Z79.899 Other long term (current) drug therapy; Z95.1 Presence of aortocoronary bypass graft
CPT/HCPCS: 36415; 71046; 80048; 85025; 87070; 87077; 87186; 87205; J0360; J2001; J2405; J2704; J3010

== ENCOUNTER 2019-12-03 03:43 | Observation (INO) | payer MEDICARE, OTHER ==
[2019-12-03 04:31] LABS: #Eosinphils 0.1 thou/uL (0.0-0.7); #Lymphocytes 1.1 thou/uL (1.20-3.40); #Monocytes 0.7 thou/uL (0.11-0.59); #Neutrophils 9.1 thou/uL (1.40-6.50); %Basophils 0.4 % (0.0-1.0); %Eosinophils 0.5 % (0.0-10.0); %Lymphocytes 9.9 % (21.0-51.0); %Monocytes 6.6 % (0.0-10.0); %Neutrophils 82.6 % (42.0-75.0); Hemoglobin 13.6 g/dL (14.0-18.0); Mean Corpuscular HGB CONC 34.1 g/dL (32.0-36.0); Mean Corpuscular Hemoglobin 31.1 pg (27.0-31.0); Mean Platelet Volume 7.8 fL (7.4-10.4); Platelet Count 187 thou/uL (130-400); RBC Distribution Width 12.2 % (11.5-14.5); Red Blood Cell (RBC) Count 4.37 mill/uL (4.70-6.10)
[2019-12-03 04:54] LABS: ALT (SGPT) 20 U/L (8-55); AST (SGOT) 40 U/L (5-34); Albumin 3.7 g/dL (3.4-4.8); Alkaline Phosphatase 67 U/L (40-110); Anion Gap 14 mmol/L (10-20); BUN (Urea Nitrogen) 18 mg/dL (8.4-25.7); Bilirubin, Total 1.1 mg/dL (0.2-1.2); Calc. Creatinine Clearance 0 mL/min (70-130); Calcium 8.3 mg/dL (7.8-10.44); Carbon Dioxide 25 mmol/L (23-31); Chloride 104 mmol/L (98-107); Estimated GFR-MDRD 52; Globulin 2.1 g/dL (2.4-3.5); Glucose 175 mg/dL (83-110); Lipase 20 U/L (8-78); Potassium 3.2 mmol/L (3.5-5.1); Protein, Total 5.8 g/dL (5.8-8.1); Sodium 140 mmol/L (136-145)
[2019-12-03] MEDS ORDERED: Nitroglycerin 0.4 MG TAB (25 Tab Bottle) SL PRN (05:48)
--- NOTE | 2019-12-03 05:57 | PDOC.HHP ---
Hospitalist HPI - History of Present Illness Chest pain History of Present Illness: 79-year-old gentleman with a history of coronary artery disease status post 5 vessel bypass presented to the emergency department with a complaint of chest pain of onset last night. Patient stated he was walking to the bathroom when he experienced the chest pain. He rated the pain at maximum intensity 8/10, located in the anterior chest, nonradiating, relieved by sublingual nitroglycerin given by EMS. His initial troponin in the emergency department is negative. EKG demonstrated bradycardia, questionable atrial fibrillation. Chest x-ray demonstrated no acute disease. Patient was chest pain-free during my assessment in the ED. He is placed under observation for ACS rule out. Hospitalist ROS - Review of Systems Other: Except as documented, all other systems reviewed and negative. Hospitalist History - Past Medical History Cardiac: reports: AFIB, CAD, HTN Renal/: reports: Benign prostatic enlarg. Endocrine: reports: Diabetes - Past Surgical History Past Surgical History: reports: CABG - Family History Family History: reports: cancer (Father) - Social History Smoking Status: Never smoker Alcohol: reports: None Drugs: reports: none - Exam General Appearance: NAD, awake alert General - other findings: Obese Eye: PERRL, anicteric sclera ENT: normocephalic atraumatic, no oropharyngeal lesions, moist mucosa Neck: supple, symmetric, no JVD, no thyromegaly Heart: RRR, no murmur, no gallops Respiratory: CTAB, no wheezes, no rales, no ronchi Gastrointestinal: soft, non-tender, non-distended, normal bowel sounds, no palpable masses Extremities: no cyanosis, no clubbing, 1+ LE edema (Bilateral) Skin: normal turgor, no rashes Neurological: cranial nerve grossly intact, no focal deficits Musculoskeletal: normal tone, normal strength Psychiatric: normal affect Hospitalist Results - Labs Result Diagrams: 12/03/19 04:22 12/03/19 04:22 Lab results: WBC 11.0 thou/uL (4.8-10.8) H 12/03/19 04:22 Hgb 13.6 g/dL (14.0-18.0) L 12/03/19 04:22 Hct 39.7 % (42.0-52.0) L 12/03/19 04:22 MCV 91.0 fL (78.0-98.0) 12/03/19 04:22 Plt Count 187 thou/uL (130-400) 12/03/19 04:22 Neutrophils % 82.6 % (42.0-75.0) H 12/03/19 04:22 Sodium 140 mmol/L (136-145) 12/03/19 04:22 Potassium 3.2 mmol/L (3.5-5.1) L 12/03/19 04:22 Chloride 104 mmol/L (98-107) 12/03/19 04:22 Carbon Dioxide 25 mmol/L (23-31) 12/03/19 04:22 BUN 18 mg/dL (8.4-25.7) 12/03/19 04:22 Creatinine 1.32 mg/dL (0.7-1.3) H 12/03/19 04:22 Glucose 175 mg/dL (83-110) H 12/03/19 04:22 Calcium 8.3 mg/dL (7.8-10.44) 12/03/19 04:22 Total Bilirubin 1.1 mg/dL (0.2-1.2) 12/03/19 04:22 AST 40 U/L (5-34) H 12/03/19 04:22 ALT 20 U/L (8-55) 12/03/19 04:22 Alkaline Phosphatase 67 U/L (40-110) 12/03/19 04:22 Troponin I 0.016 ng/mL (< 0.028) 12/03/19 04:22 B-Natriuretic Peptide 161.8 pg/mL (0-100) H 12/03/19 04:22 Serum Total Protein 5.8 g/dL (5.8-8.1) 12/03/19 04:22 Albumin 3.7 g/dL (3.4-4.8) 12/03/19 04:22 Lipase 20 U/L (8-78) 12/03/19 04:22 - Radiology Interpretation Chest x-ray Status: image reviewed by me (No acute cardiopulmonary disease.) Hospitalist H&P A/P - Problem (1) Chest pain Code(s): R07.9 - CHEST PAIN, UNSPECIFIED Status: Acute (2) Paroxysmal atrial fibrillation with RVR Code(s): I48.0 - PAROXYSMAL ATRIAL FIBRILLATION Status: Acute (3) CAD (coronary artery disease) Code(s): I25.10 - ATHSCL HEART DISEASE OF [place] CORONARY ARTERY W/O ANG PCTRS Status: Chronic Qualifiers: Coronary Disease-Associated Artery/Lesion type: [place] artery (4) Diabetes mellitus type 2, diet-controlled Code(s): E11.9 - TYPE 2 DIABETES MELLITUS WITHOUT COMPLICATIONS Status: Chronic - Plan Plan: Place in observation telemetry. Continue to trend troponin Consult cardiology-Dr. Lagos Patient has been noncompliant with aspirin use. Start aspirin Continue home dose Coreg Check lipid profile Continue home dose simvastatin. Echocardiogram requested. NTG as needed IV Morphine as needed for pain.
--- NOTE | 2019-12-03 06:10 | PDOC.FMACP ---
Advance Care Planning - Problem (1) Chest pain Status: Acute Code(s): R07.9 - CHEST PAIN, UNSPECIFIED (2) Paroxysmal atrial fibrillation with RVR Status: Acute Code(s): I48.0 - PAROXYSMAL ATRIAL FIBRILLATION (3) CAD (coronary artery disease) Status: Chronic Code(s): I25.10 - ATHSCL HEART DISEASE OF [place] CORONARY ARTERY W/O ANG PCTRS Qualifiers: Coronary Disease-Associated Artery/Lesion type: [place] artery (4) Diabetes mellitus type 2, diet-controlled Status: Chronic Code(s): E11.9 - TYPE 2 DIABETES MELLITUS WITHOUT COMPLICATIONS - Note Summary: Advanced Care Planning was discussed. The diagnosis, prognosis and goals of care were discussed. Appropriate forms and documentation to accomplish the goals of care were discussed. All questions were answered. The Palliative Care Team will be engaged to assist with completion of any outstanding forms that are needed. Patient named his friend Kim Steele as a surrogate decision maker. Time Spent (mins): 18
[2019-12-03 06:33] VITALS: BMI 27.0
[2019-12-03 07:59] LABS: Troponin I 0.019 ng/mL (< 0.028)
[2019-12-03] MEDS ORDERED: Carvedilol 6.25 MG TAB PO SCH (08:00)
--- NOTE | 2019-12-03 08:00 | RAD ---
EXAM: CHEST ONE VIEW HISTORY: Chest wall pain. COMPARISON: 07/04/2017. FINDINGS: Postoperative changes related to CABG are again noted. Cardiac silhouettes is stable in size. Pulmona ry vasculature is within normal limits. There is stable elevation right hemidiaphragm. Lungs remain clear. Vascular calcifications are again seen in the thoracic aorta. The chest is stable compared to prior exam. IMPRESSION: No acute cardiopulmonary process.
[2019-12-03] MEDS ORDERED: Enoxaparin Sodium 40 MG/0.4 ML SYRINGE SC SCH (09:00)
[2019-12-03] MEDS ORDERED: Tamsulosin HCl 0.4 MG CAP PO SCH (09:00)
[2019-12-03] MEDS ORDERED: Aspirin 81 mg Enteric Coated Tablet PO SCH (09:00)
[2019-12-03 11:00] LABS: Troponin I Less than 0.010 ng/mL (< 0.028)
[2019-12-03 11:40] LABS: SARS-CoV-2 MS2 Positive; SARS-CoV-2 N Gene Negative; SARS-CoV-2 S Gene Negative; SARS-CoV-2 by NAA Not Detected (NotDetected); SARS-CoV-2 orf1ab Negative
[2019-12-03 12:18] VITALS: BP 162/71; TEMP 98.8
--- NOTE | 2019-12-03 14:46 | CON ---
DATE OF CONSULTATION: 12/03/2019 REASON FOR CONSULTATION: Chest pain. HISTORY OF PRESENT ILLNESS: Mr. Ann is a very pleasant 79-year-old gentleman, very well known to myself, who comes to the hospital for chest pain. He had a burning sensation of epigastrium. He was not sure if this was his heart versus just heartburn, but he decided to call 911 as this was what had been advised in the past. He has a history of coronary artery disease with 5-vessel bypass about 2 years ago. On my evaluation, he is feeling much better. He denies any chest pain, tightness, or pressure. He is adamant on going home as he says he feels back to normal. PAST MEDICAL HISTORY: 1. History of paroxysmal atrial fibrillation. 2. Coronary artery disease, status post bypass. 3. Hypertension. 4. BPH. 5. Type 2 diabetes. PAST SURGICAL HISTORY: 1. CABG x5 in 2018, 2 years ago. 2. Cardiac catheterization prior to bypass. SOCIAL HISTORY: No alcohol, tobacco, or drugs. FAMILY HISTORY: Noncontributory. OUTPATIENT MEDICATIONS: 1. Losartan-hydrochlorothiazide 100/25 mg a day. 2. Carvedilol 12.5 mg b.i.d. 3. Amlodipine 10 mg a day. 4. He has refused to take aspirin as he feels very convinced that this is going to cause GI bleeds, and he refused to take many other medications including statin drugs because he is into natural medicine and he takes only natural medications. ALLERGIES: NO KNOWN DRUG ALLERGIES. REVIEW OF SYSTEMS: A 12-point review of systems was done and was found to be negative other than stated in the History of Present Illness. PHYSICAL EXAMINATION: VITAL SIGNS: Temperature 98.4, pulse 87, respiratory rate 16, saturating 100% on room air, and blood pressure 137/84. GENERAL: Awake, alert, and oriented x3, in no distress. HEENT: Normocephalic, atraumatic. NECK: Supple. LUNGS: Clear. CARDIOVASCULAR: S1 and S2. No S3 or S4. No murmurs. No rubs. ABDOMEN: Soft. Positive bowel sounds. EXTREMITIES: No edema. SKIN: Warm and dry. LABORATORY DATA: Laboratory work was reviewed. CBC with a white count of 11, hemoglobin of 13, hematocrit of 39, and platelet count of 187. Chemistries were reviewed. Potassium was 3.2, BUN of 18, creatinine of 1.32. Troponin was negative x3. BNP was 161, albumin of 3.7, LDL of 107, HDL of 34, lipase of 20. COVID PCR was not detected. Chest x-ray was unremarkable. Echocardiogram done earlier today, showed an EF of 60% to 65% and mild to moderate aortic valve stenosis with valve area of 1.3 cm2, mean gradient of 16 mmHg and max velocity of 2.7 m/sec. ASSESSMENT: 1. Chest pain, atypical. 2. Hook-fw-vfgcxdsk aortic valve stenosis. 3. Coronary artery disease with history of coronary artery bypass grafting x5 in . Currently, no acute coronary syndrome .. PLAN: He would like to be discharged home and have any further risk stratification as an outpatient. I think this is reasonable given his low risk findings on EKG, echo, and blood work. He should be able to be discharged home. I will try to set him up in the office with a stress test in the next week or 2. Thank you for letting us to participate in the care of your patient. He may be discharged home. We will follow up in the office. Job ID: [id number]
--- NOTE | 2019-12-03 15:25 | DIS ---
DATE OF ADMISSION: 12/03/2019 DATE OF DISCHARGE: 12/03/2019 PRIMARY CARE PHYSICIAN: Dr. Lockwood. DISCHARGE DIAGNOSES: 1. Chest pain, unspecified. 2. Paroxysmal atrial fibrillation. 3. Coronary artery disease. 4. Diabetes type 2. CONSULTATION: Dr. Lagos, Cardiology. PROCEDURES PERFORMED: None. LABORATORY DATA: WBC 11.0, hemoglobin 13.3, platelets 187, hematocrit 39.7. Chemistry; sodium 140, potassium 3.2, chloride is 104, carbon dioxide 25, BUN 18, creatinine is 1.32. Troponins negative x3. BNP 161. LDL 107. COVID PCR was negative. IMAGING STUDIES: Chest x-ray, no acute cardiopulmonary process. Echo showed EF of 60% to 65%. Grade 1/3 diastolic dysfunction, elevated RVSP 55 mmHg. HISTORY OF PRESENT ILLNESS AND BRIEF HOSPITAL COURSE: The patient is a pleasant 79-year-old gentleman, who has had a significant past medical history of CAD with history of 5-vessel bypass, who presented to the ED with complaining of acute onset of chest pain that started last night. Initial workup in the ED was unremarkable, however, given his significant cardiac history, the patient was subsequently admitted to hospitalist service for observation. The patient was monitored on tele. There was no evidence of arrhythmia. His serial enzymes negative x3. The patient was seen by Dr. Lagos, he will arrange for outpatient stress test, from his standpoint the patient can be discharged to home with PPI b.i.d. x1 month. He will follow up with him in the office. The patient was counseled compliant with his aspirin. At this time, his symptom has resolved. The patient is stable to discharge home. DISPOSITION: Stable to discharge home. ACTIVITY: As tolerated. DIET: Cardiac diet. FOLLOWUP CARE: The patient to follow up with PCP in 1 to 2 months and follow up with his tank builder supervisor, Dr. Lagos to arrange outpatient stress test. PHYSICAL EXAMINATION: VITAL SIGNS: Temperature is 98.8, pulse 63, blood pressure 162/71, saturating well 97% on room air. GENERAL APPEARANCE: The patient is not in any acute distress. He appears to be comfortable. HEENT: Normocephalic and atraumatic. Mucous membranes are moist. NECK: Supple. No lymphadenopathy. No JVD. CARDIOVASCULAR: Regular rate and rhythm. S1 and S2 noted. No murmur. PULMONOLOGY: Clear to auscultation bilaterally. ABDOMEN: Soft, nontender, nondistended. Positive bowel sounds. MUSCULOSKELETAL: No joint pain or tenderness. No lower extremity edema. SKIN: No rash. NEUROLOGIC: Cranial nerves 2 through 12 grossly intact. No focal weakness. PSYCHIATRIC: The patient is alert and oriented x3 with normal affect. DISCHARGE MEDICATIONS: New prescriptions; Protonix 40 mg IV b.i.d. x1 month. He will continue his home medications including; 1. Aspirin 81 mg p.o. daily. 2. Losartan/hydrochlorothiazide 100/25 mg tablet one tablet p.o. daily. 3. Norvasc 10 mg p.o. daily. 4. Coreg 12.5 mg b.i.d. Thank you for allowing us to participate in this patient's care. Discharge time spent, 30 minutes. Job ID: [id number]
[2019-12-03] MEDS ORDERED: Atorvastatin Calcium 10 MG TAB PO SCH (21:00)
== END 2019-12-03 15:20 | disposition home or self-care (01) ==
LOC: ERS 03:43 → 2SW 06:18
PROVIDERS: ADMIT Internal Medicine; ATTEND Internal Medicine
DX: R07.89 Other chest pain (principal); I48.0 Paroxysmal atrial fibrillation; I25.10 Atherosclerotic heart disease of native coronary artery without angina pectoris; I10 Essential (primary) hypertension; E11.9 Type 2 diabetes mellitus without complications; I35.0 Nonrheumatic aortic (valve) stenosis; Z79.899 Other long term (current) drug therapy; Z95.1 Presence of aortocoronary bypass graft; Z20.828 Contact with and (suspected) exposure to other viral communicable diseases
CPT/HCPCS: 71045; 80053; 80061; 83690; 83880; 84484 ×2; 85025; 93005; 93306; 99285; U0003; 36415; 87635; G0378